=== PATIENT | male | born 1955 | race Caucasian/White ===

== ENCOUNTER 2022-02-15 17:55 | Emergency (ER) | payer MEDICAID, SELFPAY ==
[2022-02-15 18:35] VITALS: BP 148/84; PULSE 70; RESP 18; TEMP 36.7; O2SAT 98; BMI 34.1
[2022-02-15 18:45] VITALS: PULSE 68; O2SAT 98
--- NOTE | 2022-02-15 18:46 | PC.NURSE ---
DR YODER AT BEDSIDE FOR EVALUATION
[2022-02-15 19:05] VITALS: BP 148/84; PULSE 68; RESP 18; TEMP 36.7; O2SAT 98
--- NOTE | 2022-02-21 15:18 | HMH.EDEYEP ---
Discharge Plan Disposition Patient Disposition: Home, Self-Care Condition: Good Prescriptions Prescriptions: New Lotemax 0.5 % ointment 1 applic ophthalmic (eye) QID 14 Days Qty: 3.5 0RF Rx Instructions: start 24 hours after surgery Akten (PF) 3.5 % gel 2 drp ophthalmic (eye) Q10M Qty: 25 0RF Rx Instructions: repeat as needed to maintain desired effect Referrals Follow up/Referrals: Provider,Referral, MD [Primary Care Provider] - See instructions Activity Restrictions/Add. Instructions Additional Instructions/Restrictions: Please follow-up with your auto glass technician due to your ongoing symptoms. Also recommend discussing with your auto glass technician regarding referral to dermatology. Please utilize the eyedrops and ointment as prescribed and return for any worsening symptoms. Clinical Impressions Clinical Impression: Dermatitis Instructions Patient Instructions: Contact Dermatitis Print Language Print Language: Luxembourgish Discharge ED Provider: Afia Velarde Eye Problem HPI General Chief complaint: Eye Problems Stated complaint: possible chemical burn bilateral eyes Time Seen by Provider: 02/15/22 18:00 Mode of Arrival: Ambulatory Source of Information: Patient Limitations: No Limitations Description of Symptoms (Recalled from ER Triage Doc. by RN): PT REPORTS 3 WEEKS OF BILATERAL EYE/EYE LID IRRITATION. GIVEN MULTIPLE MEDICATIONS WITHOUT IMPROVEMENT. NEW CREAM GIVEN TODAY. REPORTS EYE LIDS ARE BURNING SINCE USE History of Present Illness HPI Narrative: Carolyn is a 66 yo male w/ no significant PMH presenting to the ED for 3 weeks of bilateral eye and eye lid irriation. Patient is currently being followed by opthamology and has been on multiple medications without improvement. Patient reports inside his eyes are better, however the skin around his eyes are irritated and inflamed. Patient has not been given any cream to go around eye only intraocular. His auto glass technician reported they believe he may have ezcema and have referred him to specialist. Patient denies any visual changes, blurry vision or diplopia. No pain w/ EOM. NO significant swelling around eye. Patient has isolated erythema surrounding eyes which he reports garcia. Reports no trauma to eyes. No exposure to chemical irritant. No fevers or other infectious symptoms. No contacts. NO other rashes on skin. NO auricular changes. MD chief complaint: eye pain (Pain around eye) Onset (ago): week(s) Onset description: gradual Duration: constant Location: both eyes Eye Symptoms: burning, redness and pain Mechanism: none Severity: moderate If Pain, Quality: burning Associated symptoms: none Treatments Prior to Arrival: OTC eye drops Related Data Previous Rx's Medication Instructions Recorded lidocaine (PF) 3.5 % eye gel 2 drp ophthalmic (eye) Q10M #25 mL 02/15/22 (Akten (PF)) loteprednol etabonate 0.5 % eye 1 applic ophthalmic (eye) QID 14 02/15/22 ointment (Lotemax) days #3.5 grams Allergies Allergy/AdvReac Type Severity Reaction Status Date / Time No Known Allergies Allergy Verified 02/15/22 18:53 [facility] Disclaimer: The information contained in this section may have been updated after the patient was seen, as this information can be updated by other users. Medical History (Updated 02/15/22 @ 18:59 by Afia Velarde MD) Diabetes GERD (gastroesophageal reflux disease) Hyperlipidemia Seasonal allergies Family History Other No significant family history Social History Smoking Status: Current every day smoker alcohol intake: never current occupational status: employed Travel in the last 8 weeks: None ROS Obtained: Yes All systems reviewed & no additional complaints except as documented Physical Exam General General appearance: alert and in no apparent distress Head Head exam: atraumatic and no
== END 2022-02-15 19:05 | disposition home or self-care (01) ==
PROVIDERS: Emergency Provider Student in an Organized Health Care Education/Training Program
DX: H92.03 Otalgia, bilateral (principal)
CPT/HCPCS: 99283

== ENCOUNTER → 2022-04-05 10:46 | Outpatient (CLI) | payer MEDICAID, SELFPAY | PROVIDERS: PCP Internal Medicine Adolescent Medicine; Visit Provider Nurse Practitioner Family | DX: E83.10 Disorder of iron metabolism, unspecified (principal); G25.81 Restless legs syndrome | CPT/HCPCS: 36415; 82728 ==

== ENCOUNTER 2022-04-27 06:18 | Day surgery (SDC) | payer MEDICAID, SELFPAY ==
[2022-04-22 13:20] VITALS: BMI 33.4
[2022-04-27] VITALS (8 sets, daily range): BP systolic 126–148; BP diastolic 65–111; PULSE 51–62; RESP 17–18; TEMP 36.5–36.6; O2SAT 94–99
[2022-04-27 07:19] LABS: POC Glucose,Bedside 102 (70-110)
== END 2022-04-27 08:36 | disposition home or self-care (01) ==
PROVIDERS: PCP Internal Medicine Adolescent Medicine; Visit Provider Ophthalmology
PROC: (CPT 66984; principal; 2022-04-27 08:00)
DX: E11.36 Type 2 diabetes mellitus with diabetic cataract (principal); F17.210 Nicotine dependence, cigarettes, uncomplicated; Z79.899 Other long term (current) drug therapy
CPT/HCPCS: 66984; 82962; V2632

== ENCOUNTER 2022-05-11 09:06 | Day surgery (SDC) | payer MEDICAID, SELFPAY ==
[2022-05-10 12:47] VITALS: BMI 34.0
[2022-05-11] VITALS (8 sets, daily range): BP systolic 143–183; BP diastolic 70–103; PULSE 59–76; RESP 16–18; TEMP 36.4–36.9; O2SAT 96–99
[2022-05-11 10:31] LABS: POC Glucose,Bedside 120 (70-110)
== END 2022-05-11 11:10 | disposition home or self-care (01) ==
PROVIDERS: PCP Internal Medicine Adolescent Medicine; Visit Provider Ophthalmology
PROC: (CPT 66984; principal; 2022-05-11 11:30)
DX: E11.36 Type 2 diabetes mellitus with diabetic cataract (principal); H25.9 Unspecified age-related cataract; F17.210 Nicotine dependence, cigarettes, uncomplicated; Z79.899 Other long term (current) drug therapy
CPT/HCPCS: 66984; 82962; V2632

== ENCOUNTER → 2022-05-18 07:09 | Outpatient (CLI) | payer MEDICAID, SELFPAY ==
--- NOTE | 2022-05-18 07:15 | CT_ITS ---
FINAL REPORT TECHNIQUE: Axial images were obtained from the lung apex to the mid abdomen by computed tomography. This study was performed with techniques to keep radiation doses as low as reasonably achievable (ALARA). Individualized dose reduction techniques using automated exposure control or adjustment of mA and/or kV according to the patient's size were employed. CLINICAL HISTORY: H/O NICOTINE DEPENDENCE 1 ppd x25 years current smoker FINDINGS: CHEST CT LOW DOSE CTDI vol (mGy): 2.90 DLP (mGy-cm): 96.38 There is no axillary adenopathy. There are multiple calcified mediastinal and left hilar nodes. The heart is normal in size. There is no pericardial or pleural effusion. Lung window images demonstrate no suspicious infiltrate or nodule. There is a calcified granuloma in the left lower lobe. There are changes of mild emphysema and scarring. Limited images of the upper abdomen are unremarkable. IMPRESSION: Lung RADS category 1. Recommend 12 month follow-up low-dose chest CT. Reviewed, Interpreted and Dictated by Rush Davis III, MD Transcribed by Disha Alicia Authenticated and [facility]
== END ==
PROVIDERS: PCP Internal Medicine Adolescent Medicine; Visit Provider Internal Medicine Adolescent Medicine
DX: Z87.891 Personal history of nicotine dependence (principal); Z12.2 Encounter for screening for malignant neoplasm of respiratory organs
CPT/HCPCS: 71271

== ENCOUNTER → 2022-07-16 10:54 | Outpatient (CLI) | payer MEDICARE, MEDICAID, SELFPAY ==
--- NOTE | 2022-07-16 11:04 | XR_ITS ---
FINAL REPORT CLINICAL HISTORY: RIGHT HAND PAIN. INJURY 15 YEARS AGO. NO PRIOR COMPARISON: None FINDINGS: RIGHT HAND Three views demonstrate no acute fracture or dislocation. There is mild joint space narrowing of the DIP and PIP joints and of the 2nd and 3rd MCP joints consistent with mild osteoarthritis. No bony erosions or periosteal reaction. The soft tissues are unremarkable. IMPRESSION: Mild osteoarthritis. Reviewed, Interpreted and Dictated by Uzair Jenkins MD Transcribed by Mia Polanco Authenticated and [facility]
[2022-07-16 12:12] LABS: Basophils % 0.3 % (0.1-2.0); Eosinophils # 0.1 K/mm3 (0.0-0.4); Eosinophils % 1.9 % (0.1-12.0); Hematocrit 43.5 % (42.0-52.0); Hemoglobin 14.5 g/dL (14.1-18.0); Lymphocytes # 1.6 K/mm3 (0.7-4.5); Lymphocytes % 21.1 % (10-50); Mean Corpuscular HGB Conc 33.3 g/dL (31.8-35.4); Mean Corpuscular Hemoglobin 30.2 pg (27.0-31.2); Mean Corpuscular Volume 90.6 fl (80-94); Mean Platelet Volume 7.4 fl (7.4-10.4); Monocytes # 0.7 K/mm3 (0.1-1.0); Monocytes % 8.8 % (1.7-9.3); Neutrophils # 5.2 K/mm3 (1.8-7.8); Neutrophils % 67.9 % (37.0-80.0); Platelet Count 279 K/mm3 (142-424); Red Cell Distribution Width 13.5 % (11.5-17.5); White Blood Count 7.7 K/mm3 (4.8-10.8)
[2022-07-16 12:40] LABS: Alanine Aminotransferase 37 U/L (12-78); Albumin Level 4.1 g/dl (3.5-5.0); Albumin/Globulin Ratio 1.4 (1.1-1.8); Alkaline Phosphatase 61 U/L (38-126); Anion Gap 11.7 mEq/L (5-15); Aspartate Amino Transferase 33 U/L (17-59); Bilirubin,Total 0.6 mg/dl (0.2-1.3); Blood Urea Nitrogen 19 mg/dl (9-20); Calcium 8.6 mg/dl (8.4-10.2); Carbon Dioxide 30 mmol/L (22.0-30.0); Chloride 102 mmol/L (98-107); Estimated Glomerular Filt Rate 51 ml/min (>60); GFR (African American) 62 ML/MIN (>60); Globulin 2.9 g/dL (1.3-3.2); Glucose 133 mg/dl (74-100); Potassium 4.7 mmoL/L (3.5-5.1); Sodium 139 mmol/L (136-145)
== END ==
PROVIDERS: PCP Internal Medicine Adolescent Medicine; Visit Provider Internal Medicine Adolescent Medicine
DX: M79.641 Pain in right hand (principal); B80 Enterobiasis
CPT/HCPCS: 36415; 73130; 80053; 85025

== ENCOUNTER 2022-11-08 14:51 | Emergency (ER) | payer MEDICARE, MEDICAID, SELFPAY ==
[2022-11-08] VITALS (9 sets, daily range): BP systolic 107–162; BP diastolic 55–83; PULSE 56–107; RESP 16–18; TEMP 36.8; O2SAT 95–99; BMI 34.0
--- NOTE | 2022-11-08 15:13 | XR_ITS ---
PROCEDURE INFORMATION: Exam: XR Chest Exam date and time: 11/08/2022 4:44 PM Age: 67 years old Clinical indication: Pain; Radiating; Additional info: Cp, tearing, to back TECHNIQUE: Imaging protocol: Radiologic exam of the chest. Views: 1 view. COMPARISON: CT LUNG SCREENING 05/18/2022 7:22 AM FINDINGS: Lungs: Left lower lobe granuloma is re-identified. No evidence of pneumonia or interstitial edema. Pleural spaces: Unremarkable. No pleural effusion. No pneumothorax. Heart/Mediastinum: Unremarkable. No cardiomegaly. Bones/joints: Unremarkable. IMPRESSION: Left lower lobe granuloma is re-identified. No evidence of pneumonia or interstitial edema.
--- NOTE | 2022-11-08 15:13 | CT_ITS ---
PROCEDURE INFORMATION: Exam: CTA Chest With Contrast Exam date and time: 11/08/2022 4:55 PM Age: 67 years old Clinical indication: Pain; Radiating; Additional info: Tearing pain between shoulder blades TECHNIQUE: Imaging protocol: Computed tomographic angiography of the chest with contrast. Exam focused on the arteries. 3D rendering (Not supervised by radiologist): MIP and/or 3D reconstructed images were created by the technologist. Radiation optimization: All CT scans at this facility use at least one of these dose optimization techniques: automated exposure control; mA and/or kV adjustment per patient size (includes targeted exams where dose is matched to clinical indication); or iterative reconstruction. Contrast material: ISOVUE; Contrast volume: 100 ml; Contrast route: INTRAVENOUS (IV); REPORTING DATA: Count of CT and Cardiac NM exams in prior 12 months: This patient has received [address] and 0 known cardiac nuclear medicine studies in the 12 months prior to the current study. COMPARISON: CT LUNG SCREENING 05/18/2022 7:22 AM FINDINGS: Pulmonary arteries: No evidence of filling defects to suggest pulmonary emboli. Aorta: Aorta is nonaneurysmal. Lungs: Left lower lobe pulmonary granulomas re-identified.No evidence of airspace opacity or interlobular septal thickening. Pleural spaces: No pneumothorax. No pleural effusion. Heart: No cardiomegaly or pericardial effusion. Heart RV/LV ratio: The RV/LV ratio is less than 1. Lymph nodes: Prominent right hilar nodes. Calcified mediastinal and hilar lymph nodes suggest prior granulomatous exposure. Bones/joints: No acute osseous abnormality. Soft tissues: Unremarkable. IMPRESSION: 1. No pulmonary embolus. 2. No airspace or interstitial lung disease
--- NOTE | 2022-11-08 15:34 | HMH.EDGENADL ---
Discharge Plan Disposition Patient Disposition: Home, Self-Care Chief Complaint: PAIN Prescriptions Prescriptions: No Action Januvia 100 mg tablet 100 mg PO DAILY ezetimibe 10 mg tablet 10 mg PO DAILY pantoprazole 40 mg tablet,delayed release (DR/EC) 40 mg PO HS Patient Comments: TAKE 1 TABLET BY MOUTH ONCE DAILY etodolac 400 mg tablet 400 mg PO DAILY Patient Comments: TAKE 1 TABLET BY MOUTH TWICE DAILY loratadine [Claritin] 10 mg tablet 10 mg PO DAILY dutasteride 0.5 mg capsule 0.5 mg PO DAILY Slow Fe 47.5 mg iron Tablet Extended Release 143 mg PO DAILY Referrals Follow up/Referrals: Melvin Israel MD [Primary Care Provider] - See instructions Activity Restrictions/Add. Instructions Additional Instructions/Restrictions: Call your family doctor to establish care for this visit to the emergency department and schedule follow-up within 48 hours to ensure improvement. If you have any worsening of your condition or any other concerning signs or symptoms, return to the emergency department or your primary care doctor for further evaluation. Take Tylenol 1000 mg every 6 hours (4 times daily) and ibuprofen 400 mg every 6 hours (4 times daily) as needed with food and water to prevent GI upset and kidney damage. Clinical Impressions Clinical Impression: Back pain Qualifiers: Back pain location: thoracic back pain Chronicity: acute Back pain laterality: bilateral Qualified Code(s): M54.6 - Pain in thoracic spine Discharge ED Provider: Ki Ramirez General Adult HPI General Chief complaint: PAIN Stated complaint: pain in back of neck and radiates down left side Time Seen by Provider: 11/08/22 15:00 Mode of Arrival: Ambulatory Source of Information: Patient Limitations: No Limitations Description of Symptoms (Recalled from ER Triage Doc. by RN): Presents to ED with c/o 11 pain that radiates from his neck into his left arm x a few weeks when he was lifting heavy items. Patient reports this has been going on for approx. 3 months but pain has increased with some SOA and weakness. Patient further reports taking 400mg of an anti-inflammatory medication twice a day but unsure of the name with little to no relief. History of Present Illness HPI narrative: This is a 67-year-old male with history of hypertension, hyperlipidemia, COPD still currently smoking, HAI, chronic back pain necessitating epidural injection presenting with back pain. Patient states that for 3 months he has had a shooting, stabbing back pain that starts in the middle of his spine between shoulder blades and radiates down his left arm. Moderate to severe in intensity, nothing particular makes it better. Intermittently has separate, but similar pain radiating from his left buttock down to his left sole of his foot. Denies shortness of breath, nausea, abdominal pain, dysuria hematuria, weakness, bowel or bladder dysfunction, fevers, or any other concerns. Related Data Home Medications Medication Instructions Recorded Confirmed dutasteride 0.5 mg capsule 0.5 mg PO DAILY prostate 04/05/22 09/28/22 etodolac 400 mg tablet 400 mg PO DAILY * 04/05/22 09/28/22 ezetimibe 10 mg tablet 10 mg PO DAILY * 04/05/22 09/28/22 loratadine 10 mg tablet (Claritin) 10 mg PO DAILY allergies 04/05/22 09/28/22 pantoprazole 40 mg tablet,delayed 40 mg PO HS acid reflux 04/05/22 09/28/22 release sitagliptin phosphate 100 mg 100 mg PO DAILY Diabetes 04/05/22 09/28/22 tablet (Januvia) ferrous sulfate 143 mg PO DAILY Supplement 04/22/22 09/28/22 Allergies Allergy/AdvReac Type Severity Reaction Status Date / Time metformin Allergy Verified 09/28/22 14:13 [id number] Reductase Allergy Verified 09/28/22 14:13 [facility] Disclaimer: The information contained in this section may have been updated after the patient was seen, as this information can be updated by other users. Medical History (Revie
--- NOTE | 2022-11-08 15:41 | ECG_ITS ---
APPROVED REPORT Exam: Resting ECG HR:82 bpm ECG Measurements Heart Rate 82 AXES MN 153 P 69 QRSd 100 QRS -19 QT 350 T 42 QTc 389 Conclusion SINUS RHYTHM WITH MARKED SINUS ARRHYTHMIA INCOMPLETE RIGHT BUNDLE BRANCH BLOCK Late R wave progression ABNORMAL ECG UNCONFIRMED REPORT Electronically signed by : Melvin Israel MD 11/09/2022 17:19:44
--- NOTE | 2022-11-08 15:50 | PC.NURSE ---
Hipolito at bs when rounding on pt
[2022-11-08 16:20] LABS: Basophils % 0.4 % (0.1-2.0); Eosinophils # 0.2 K/mm3 (0.0-0.4); Hematocrit 48.5 % (42.0-52.0); Hemoglobin 16.2 g/dL (14.1-18.0); Lymphocytes # 2.1 K/mm3 (0.7-4.5); Lymphocytes % 21.1 % (10-50); Mean Corpuscular HGB Conc 33.4 g/dL (31.8-35.4); Mean Corpuscular Hemoglobin 30.2 pg (27.0-31.2); Mean Corpuscular Volume 90.5 fl (80-94); Mean Platelet Volume 8.3 fl (7.4-10.4); Monocytes # 0.7 K/mm3 (0.1-1.0); Monocytes % 7.4 % (1.7-9.3); Neutrophils # 6.8 K/mm3 (1.8-7.8); Neutrophils % 69.2 % (37.0-80.0); Platelet Count 347 K/mm3 (142-424); Red Blood Count 5.36 M/mm3 (4.60-6.20); Red Cell Distribution Width 13.6 % (11.5-17.5); White Blood Count 9.8 K/mm3 (4.8-10.8)
[2022-11-08 16:27] LABS: Activated Partial Thrombo Time 28.5 seconds (22.8-30.6)
[2022-11-08 16:28] LABS: Alanine Aminotransferase 42 U/L (12-78); Albumin Level 4.5 g/dl (3.5-5.0); Albumin/Globulin Ratio 1.2 (1.1-1.8); Alkaline Phosphatase 59 U/L (38-126); Anion Gap 15.1 mEq/L (5-15); Aspartate Amino Transferase 36 U/L (17-59); Bilirubin,Total 0.6 mg/dl (0.2-1.3); Blood Urea Nitrogen 15 mg/dl (9-20); Calcium 9.4 mg/dl (8.4-10.2); Carbon Dioxide 27 mmol/L (22.0-30.0); Chloride 101 mmol/L (98-107); Creatinine Clearance Estimated 86 mL/min (50-200); Estimated Glomerular Filt Rate 55 ml/min (>60); GFR (African American) 67 ML/MIN (>60); Globulin 3.9 g/dL (1.3-3.2); Glucose 171 mg/dl (74-100); Lipase 121 U/L (23-300); Potassium 4.1 mmoL/L (3.5-5.1); Sodium 139 mmol/L (136-145); Total Protein,Serum 8.4 g/dl (6.3-8.2)
--- NOTE | 2022-11-08 16:35 | PC.NURSE ---
UA sent to lab
[2022-11-08 16:41] LABS: Troponin I < 0.01 ng/ml (0.00-0.034)
--- NOTE | 2022-11-08 16:49 | PC.NURSE ---
pt in CT
--- NOTE | 2022-11-08 18:10 | PC.NURSE ---
Md bunch for PO. Ordered patient a regular diet tray.
--- NOTE | 2022-11-08 18:15 | PC.NURSE ---
Dietary @ BS with tray
== END 2022-11-08 18:38 | disposition home or self-care (01) ==
PROVIDERS: Emergency Provider Emergency Medicine; PCP Internal Medicine Adolescent Medicine
DX: M54.6 Pain in thoracic spine (principal); M54.2 Cervicalgia; M79.602 Pain in left arm; I10 Essential (primary) hypertension; E78.5 Hyperlipidemia, unspecified; J44.9 Chronic obstructive pulmonary disease, unspecified; G47.33 Obstructive sleep apnea (adult) (pediatric); E11.9 Type 2 diabetes mellitus without complications; K21.9 Gastro-esophageal reflux disease without esophagitis; F17.210 Nicotine dependence, cigarettes, uncomplicated
CPT/HCPCS: 71045; 71275; 80053; 83690; 84484; 85025; 85730; 93005; 96361; 96374; 99285; Q9967

== ENCOUNTER 2023-07-25 10:19 | Emergency (ER) | payer MEDICARE, MEDICAID, SELFPAY ==
[2023-07-25 10:20] VITALS: BP 151/114; PULSE 71; RESP 16; TEMP 36.6; O2SAT 97; BMI 43.5
--- NOTE | 2023-07-25 10:35 | PC.NURSE ---
Dr. George at BS for pt eval
--- NOTE | 2023-07-25 10:40 | XR_ITS ---
FINAL REPORT CLINICAL HISTORY: Right knee pain, atraumatic COMPARISON: None FINDINGS: A single nonstandard view of the right knee was obtained. There is no evidence of fracture or dislocation. The joint spaces are preserved. No localized soft tissue abnormality is identified. IMPRESSION: No acute abnormality identified. Reviewed, Interpreted and Dictated by Rush Davis III, MD Transcribed by Mia Polanco Authenticated and [facility]
--- NOTE | 2023-07-25 10:40 | XR_ITS ---
FINAL REPORT CLINICAL HISTORY: hip pain, atraumatic COMPARISON: None FINDINGS: A nonstandard view of the right femur was obtained. There is no acute fracture or dislocation. The joint spaces are well preserved. There is no acute soft tissue abnormality. IMPRESSION: No acute abnormality identified. Reviewed, Interpreted and Dictated by Rush Davis III, MD Transcribed by Mia Polanco Authenticated and [facility]
--- NOTE | 2023-07-25 10:40 | XR_ITS ---
FINAL REPORT CLINICAL HISTORY: hip pain, atraumatic COMPARISON: None FINDINGS: RIGHT HIP Two views of the right hip demonstrate no acute fracture or dislocation. There are mild degenerative changes of both hips and the lower lumbar spine. The visualized bony structures are well aligned. No soft tissue abnormality is seen. IMPRESSION: Mild degenerative changes without acute bony abnormality. Reviewed, Interpreted and Dictated by Rush Davis III, MD Transcribed by Mia Polanco Authenticated and [facility]
[2023-07-25] MEDS: diazePAM 5MG TABLET 5 MG PO (10:48)
[2023-07-25] MEDS: DEXAMETHASONE 4MG TABLET 10 MG PO (10:48)
[2023-07-25] MEDS: KETOROLAC 30MG/ML VIAL 30 MG IM (10:48)
[2023-07-25] MEDS: LIDOCAINE 5% TRANSDERMAL PATCH 1 EACH TP (10:48)
[2023-07-25] MEDS: ACETAMINOPHEN 500MG TAB 1000 MG PO (10:48)
--- NOTE | 2023-07-25 10:58 | HMH.EDGENADL ---
Discharge Plan Disposition Patient Disposition: Home, Self-Care Condition: Fair Prescriptions Prescriptions: New ketorolac 10 mg tablet 10 mg PO Q8H PRN (Reason: pain) 1 Days Qty: 14 0RF prednisone 20 mg tablet 40 mg PO DAILY 5 Days Qty: 10 0RF methocarbamol 750 mg tablet 750 mg PO Q8H PRN (Reason: pain) Qty: 20 0RF lidocaine [Lidoderm] 5 % adhesive patch,medicated 1 patch topical DAILY Qty: 15 0RF Rx Instructions: leave on most painful area for up to 12 hrs No Action Januvia 100 mg tablet 100 mg PO DAILY ezetimibe 10 mg tablet 10 mg PO DAILY pantoprazole 40 mg tablet,delayed release (DR/EC) 40 mg PO HS Patient Comments: TAKE 1 TABLET BY MOUTH ONCE DAILY etodolac 400 mg tablet 400 mg PO DAILY Patient Comments: TAKE 1 TABLET BY MOUTH TWICE DAILY loratadine [Claritin] 10 mg tablet 10 mg PO DAILY dutasteride 0.5 mg capsule 0.5 mg PO DAILY Slow Fe 47.5 mg iron Tablet Extended Release 143 mg PO DAILY Referrals Follow up/Referrals: Provider,Referral, MD [Primary Care Provider] - See instructions Activity Restrictions/Add. Instructions Additional Instructions/Restrictions: You were evaluated in the emergency department today. Please brain picker your prescriptions at the pharmacy and take them as prescribed. You may also take Tylenol every 4 hours as needed for pain. Return to the emergency department for new or worsening symptoms. Follow-up with your primary care provider over the next week for reassessment. Clinical Impressions Clinical Impression: Right sided sciatica Stand Alone Forms Stand Alone Forms: Work/School Release Instructions Patient Instructions: DI for Sciatica, DI for Acute Pain -- Adult Discharge ED Provider: Dilma George General Adult HPI General Chief complaint: Extremity Problem,Nontraumatic Stated complaint: R HIP PAIN Time Seen by Provider: 07/25/23 10:21 Mode of Arrival: EMS Source of Information: Patient Limitations: No Limitations Description of Symptoms (Recalled from ER Triage Doc. by RN): Patient reports right sided hip pain since . States it has continued to get worse and today he was unable to walk. History of Present Illness HPI narrative: This patient is a 68-year-old male with a history of obesity, restless leg syndrome, tobacco use, marijuana use, hypertension, type 2 diabetes, and GERD presenting to the emergency department for evaluation with concern for right buttock pain radiating down the posterior aspect of his right leg to his toes. He denies any traumatic injuries or falls. He states that he thought maybe his hip is out of place, but EMS told him that they think that he may have sciatica. He states that this is been going on since and has progressively worsened to the point where he was unable to walk today, prompting him to call EMS. He notes that he still has intact range of motion, but his leg is very painful. He denies any low back pain, fevers, chills, unintentional weight loss, numbness, tingling, saddle anesthesia, incontinence, urinary retention, or other concerns. EMS reports the patient was stable en route. Related Data Home Medications Medication Instructions Recorded Confirmed dutasteride 0.5 mg capsule 0.5 mg PO DAILY prostate 04/05/22 09/28/22 etodolac 400 mg tablet 400 mg PO DAILY * 04/05/22 09/28/22 ezetimibe 10 mg tablet 10 mg PO DAILY * 04/05/22 09/28/22 loratadine 10 mg tablet (Claritin) 10 mg PO DAILY allergies 04/05/22 09/28/22 pantoprazole 40 mg tablet,delayed 40 mg PO HS acid reflux 04/05/22 09/28/22 release sitagliptin phosphate 100 mg 100 mg PO DAILY Diabetes 04/05/22 09/28/22 tablet (Januvia) ferrous sulfate 143 mg PO DAILY Supplement 04/22/22 09/28/22 Previous Rx's Medication Instructions Recorded ketorolac 10 mg tablet 10 mg PO Q8H PRN pain 1 day #14 07/25/23 tabs lidocaine 5 % topical patch 1 patch topical DAILY #15 ea 07/25/23 (Lidoderm) methocarbamol 750 mg tablet 750 mg PO Q8H PRN pain #20 tabs 07/25/23 prednisone 20 mg tablet 40 mg (2 x 20 mg) PO DAILY 5 days 07/25/23 #10 tabs Allergies Allergy/AdvReac Type Severity Reaction Status Date / Time metformin Allergy Verified 09/28/22 14:13 [id number] Reductase Allergy Verified 09/28/22 14:13 [facility] Disclaimer: The information contained in this section may have been updated after the patient was seen, as this information can be updated by other users. Medical History Kidney stone Sleep apnea History of cataract History of anemia Carpal tunnel syndrome of right wrist COPD (chronic obstructive pulmonary disease) Skin cancer Hyperlipidemia Diabetes GERD (gastroesophageal reflux disease) Seasonal allergies Surgical History H/O shoulder surgery Family History Other Eye problems Family history of cancer Kidney problem Social History Smoking Status: Current every day smoker tobacco type: cigarettes packs per day: 1 alcohol intake: never substance use type: marijuana current occupational status: retired and disabled Travel in the last 8 weeks: None household members: significant other housing: house marital status: life partner caffeine: Yes ROS Obtained: Yes All systems reviewed & no additional complaints except as documented Physical Exam General General appearance: alert, in no apparent distress and obese Comment: Uncomfortable appearing Head Head exam: atraumatic and normocephalic Eye Eye exam: Present normal appearance, PERRL and EOMI ENT ENT exam: Present normal exam, normal oropharynx, mucous membranes moist and normal external ear exam Neck Neck exam: Present normal inspection, full ROM and trachea midline; Absent tenderness Chest Chest inspection: Present normal inspection and symmetric chest wall rise; Absent tenderness Respiratory Respiratory exam: Present normal lung sounds bilaterally; Absent respiratory distress, wheezes, stridor or accessory muscle use Cardiovascular Cardiovascular exam: Present regular rate and normal rhythm Abdominal Exam Abdominal exam: Present soft; Absent distention, tenderness or guarding Extremities Exam Extremities exam: Present normal inspection, full ROM and normal capillary refill; Absent tenderness or edema Back Exam Back exam: Present normal inspection and full ROM; Absent tenderness Neurological Exam Neurological exam: Present alert, oriented X3, CN II-XII intact and normal gait; Absent motor sensory deficit Psychiatric Psychiatric exam: Present normal affect and normal mood Skin Skin exam: Present warm and dry Medical Decision Making Medical Records Medical records reviewed: Yes I reviewed the patient's medical records. Chi Inquiry Pt receiving controlled substance: No Vital Signs: 07/25/23 10:20 07/25/23 11:31 07/25/23 12:00 Temperature 97.9 F Temperature Source Oral Pulse Rate 63 92 H Pulse Rate [Radial] 71 Respiratory Rate 16 Blood Pressure 96/65 L Blood Pressure [Right Arm] 151/114 H Blood Pressure Mean 75 Blood Pressure Mean [Right Arm] 126 Blood Pressure Source Blood Pressure Source [Right Arm] Automatic Cuff Blood Pressure Position Blood Pressure Position [Right Arm] Sitting 02 Sat by Pulse Oximetry 97 92 L 93 L Oxygen Delivery Method Room Air 07/25/23 12:53 Temperature 98.8 F Temperature Source Oral Pulse Rate 84 Pulse Rate [Radial] Respiratory Rate 20 Blood Pressure 150/80 H Blood Pressure [Right Arm] Blood Pressure Mean Blood Pressure Mean [Right Arm] Blood Pressure Source Automatic Cuff Blood Pressure Source [Right Arm] Blood Pressure Position Sitting Blood Pressure Position [Right Arm] 02 Sat by Pulse Oximetry Oxygen Delivery Method Room Air Lab Data Lab results reviewed: Yes I reviewed the patient's lab results. Orders (Tests/Meds): ED MEDICATIONS Discontinued Medications Generic Name Dose Route Start Last Admin Trade Name Freq PRN Reason Stop Dose Admin Acetaminophen 1,000 mg 07/25/23 10:40 07/25/23 10:48 Acetaminophen 500mg Tab PO 07/25/23 10:41 1,000 mg ONCE ONE Administration Dexamethasone 10 mg 07/25/23 10:40 07/25/23 10:48 Dexamethasone 4mg Tablet PO 07/25/23 10:41 10 mg ONCE ONE Administration Diazepam 5 mg 07/25/23 10:40 07/25/23 10:48 Diazepam 5mg Tablet PO 07/25/23 10:41 5 mg ONCE ONE Administration Ketorolac Tromethamine 30 mg 07/25/23 10:40 07/25/23 10:48 Ketorolac 30mg/Ml Vial IM 07/25/23 10:41 30 mg ONCE ONE Administration Lidocaine 1 each 07/25/23 10:40 07/25/23 10:48 Lidocaine 5% Transdermal Patch TP 07/25/23 10:41 1 each ONCE ONE Administration Oxycodone HCl 5 mg 07/25/23 12:39 07/25/23 12:47 Oxycodone 5mg Immediate Release Tablet PO 07/25/23 12:40 5 mg ONCE ONE Administration ORDERS Category Date Time Status XR femur RT 1V Stat Exams 07/25/23 10:40 Completed XR hip RT 2-3V w/pelvis Stat Exams 07/25/23 10:40 Completed XR knee RT 2V Stat Exams 07/25/23 10:40 Completed Medical Decision Narrative: In summary, this patient is a 68-year-old male presenting to the Emergency Department for evaluation of right buttock pain radiating down the right leg. Differential diagnoses considered include but are not limited to sciatica, hip fracture, hip dislocation, musculoskeletal strain. Ruling out the most morbid conditions drove assessment. It should be noted patient's history includes obesity which is not at goal therapy. This complicates all aspects of care by increasing patient's risk for morbidity. I reviewed patient's past medical records and noted previous evaluations for atraumatic back pain. On exam, the patient is well-appearing. He has no obvious traumatic injury on exam and is neurovascularly intact in his lower extremities. No significant lower extremity swelling. Workup included x-rays of the right hip, pelvis, femur, and knee to evaluate for bony pathology, though I feel it is unlikely. I feel the patient was likely has sciatica. I do not feel that other labs or imaging are indicated at this time based on reassuring history and exam. Patient was given oral Valium, oral Tylenol, oral dexamethasone, IM Toradol, and a topical Lidoderm patch for symptomatic improvement of likely sciatica. I independently interpreted XR prior to the radiologist read and noted no acute bony abnormality. Please see their read for final interpretation. On reassessment, patient had some improvement after administration of interventions above. He continued to have pain that is keeping him from being able to ambulate, so he was given a one-time oral oxycodone. After this, his pain improved and he was able to ambulate to the restroom. Given this, I feel that he is appropriate for discharge with supportive management of sciatica. He was given prescriptions of Robaxin, Toradol, and prednisone. He was given instructions for close follow-up and strict return precautions. He was discharged after all questions were answered. Critical Care Critical Care Time Critical Care Time: No
--- NOTE | 2023-07-25 11:06 | PC.NURSE ---
KRISTI called to notify us that pt is having difficulties staying still or being positioned for xrays. Dr. George made aware.
[2023-07-25 11:31] VITALS: BP 96/65; PULSE 63; O2SAT 92
[2023-07-25 12:00] VITALS: PULSE 92; O2SAT 93
[2023-07-25] MEDS: OXYCODONE 5MG IMMEDIATE RELEASE TABLET 5 MG PO (12:47)
--- NOTE | 2023-07-25 12:47 | PC.NURSE ---
PT AMBULATED UP TO BR
[2023-07-25 12:53] VITALS: BP 150/80; PULSE 84; RESP 20; TEMP 37.1; O2SAT 99
== END 2023-07-25 13:01 | disposition home or self-care (01) ==
PROVIDERS: Emergency Provider Emergency Medicine
DX: M54.31 Sciatica, right side (principal)
CPT/HCPCS: 73502; 73551; 73560; 96372; 99284

== ENCOUNTER 2023-08-31 13:06 | Outpatient (RCR) | payer MEDICARE, MEDICAID, SELFPAY ==
--- NOTE | 2023-08-31 15:49 | HMH.PTOPEV ---
PT Outpatient Evaluation Rehab PT Outpatient Evaluation Start: 08/31/23 14:33 Freq: Status: Active Protocol: Document 08/31/23 14:33 TESS (Rec: 08/31/23 15:49 TESS [id number]) E-signed By Bam Valentin, PT Outpatient Therapy Subjective History Subjective History Patient is a 68 year old male presenting to outpatient PT with reports of acute on chronic LBP with RLE radicular symptoms. Symptoms of insidious onset starting approx 10 years ago that have progressively gotten worse over the past 2 weeks. Special tests indicate R anterior rotation of the innominant. No recent imaging to report. Comorbidities include hx of diabetes, melanoma and R RCR. New diagnosis of cancer in past 12 No months? Chief Complaint Pain,Stiff,Paresthesia Symptom Type Sharp,Numbness,Tingling Symptoms Relieved By Rest/Positioning,Heat, Prescription Meds Symptoms Aggravated By Standing,Bending/Stooping, Physical Activity,Lifting Prior Functional Limitations Lifting,Standing,Walking, Bending/Stooping Current Functional Limitations Lifting,Housework,Sleeping, Standing,Walking,Bending/ Stooping Symptom Description Constant but Variable Level of pain today (0-10) 4 Pain scale - at its best (0-10) 4 Pain scale - at its worst (0-10) 8 Lumbopelvic Eval Posture Thoracic Spine Posture Standing Position Increased Kyphosis Lumbar Spine Posture Standing Position Decreased Lordosis Assistive device Assistive Devices None / NA Palapation tenderness right Lumbar/Sacral Palpation Findings Tenderness Lumbar/Sacral Palpation Overall Comment PSIS/upper gluteal mm 3/4 Accessory Movement L5 right S1 right Range of Motion Lumbar Spine Active Flexion Range of 64 Motion (degrees) Lumbar Spine Active Extension Range of 18 Motion (degrees) Left Lumbar Spine Lateral Flexion Active 19 Range of Motion (degrees) Right Lumbar Spine Lateral Flexion 22 Active Range of Motion (degrees) Lumbar Spine ROM Limitations Soft Tissue Tightness,Bony Restriction Manual Muscle Test Right Knee Extension Strength Grade 5 Normal Knee Flexion Strength Grade 5 Normal Hip Flexion Strength Grade 4- Good- Extensor Hallucis Longus Strength Grade 4 Good Ankle Dorsiflexion Strength Grade 4 Good Gastronemius/Soleus Strength Grade 4 Good Altered Sensation LE Dermatome Level L5,S1 Comment NT Special Tests Hip Madhu (MARIAM) Test Positive Left,Positive Right Hip Henna Test Positive Left,Positive Right Hip Piriformis Test Positive Left,Positive Right Sciatic Nerve Tension Test Negative Left,Positive Right Yovani Test Positive Sacroiliac Joint Distraction Test Negative Left,Positive Right Kyra's Sign Test Negative Left,Positive Right Lumbar Long [place] Distraction Test/Manual Positive Traction Oswestry Index Section 1 Pain Intensity The pain comes and goes and is severe Section 2 Personal Care (Washing,Dresing) my way of washing or dressing even though it causes some pain Section 3 Lifting lifting heavy weights off the floor, but I can manage light to medium Section 4 Walking I have some pain when walking but it does not increase with distance Section 5 Sitting I can sit in my favorite chair for as long as I like Section 6 Standing I cannot stand more than 1/2 hour without increasing pain Section 7 Sleeping Because of my pain, my normal night's sleep is less than 4 hours Section 8 Social Life Pain has restricted my social life and I do not go out often Section 9 Traveling I get extra pain while traveling which compels me to seek alternate fo Section 10 Changing Degreee of Pain My pain is neither getting better or worse Score and Risk Level Oswestry Sc 26 Oswestry Risk Level Severe Disability Outpatient Therapy Assessment Impairments Problems/Impairmments Palpation Tenderness,Impaired Range of Motion,Impaired Strength,Impaired Walking, Impaired Standing,Impaired Lifting,Impaired Household Care,Impaired Bending, Subjective C/O Pain Prognosis Rehab Potential Good Clinical Impression Consistent with Diagnosis Yes Short Term Goals Number of Weeks 2 Decrease Subjective C/O Pain Yes: 5/10 at worst Patient to be Ind w/ HEP Yes Usp Goals Number of Weeks 4-6 Decreased Palpation Tenderness Yes: 1/4 Increase Range of Motion Yes: WNL Increase Strength Yes: BLE 5/5 Increase Ability to Walk Yes: 1 hr without difficulty ( 30 min currently) Increase Ability to Stand Yes: Improve Ability For Household Care Yes Improve Ability to Bend Yes Return to Recreational Activities Yes Improve Oswestry Score Yes: <20 Decrease Subjective C/O Pain Yes: 2/10 at worst Outpatient Therapy Plan of Care Treatment Plan May Include Therapeutic Exercise Including Home Yes Exercise Program Manual Therapy Techniques Yes Neuromuscular Re-education Yes Therapeutic Activities to Return to Yes Previous Functional/Work Level Gait Training Yes ADL/Self Care Education Yes Mechanical Traction Yes Dry Needling Yes Thermal Modalities Yes Electrical Stimulation Yes Ultrasound/Phonophoresis Yes Iontophoresis Yes Orthotics/Bracing/Splinting Yes Eval/Re-Eval Yes Frequency Times per week 2 Duration Number of Weeks 4-6 Addendums This patient is a candidate for social No or vocational rehab? Patient/Guardian verbally acknowledges Yes understanding of treatment program and consents to further treatment? Patient/Guardian verbally acknowledges Yes understanding of diagnosis, prognosis and goals for treatment? Eval Complexity PT Charges 92906 - Moderate Complexity Shoulder/Elbow Eval Shoulder Objective Measurements Elbow Objective Measurements PHYSICIAN CERTIFICATION: I certify the specified therapy services for Thaddeus Leon are required, authorized, and reviewed every 30 days.
== END 2023-08-31 14:20 | disposition home or self-care (01) ==
LOC: PT 13:06
PROVIDERS: Visit Provider Family Medicine
DX: M54.6 Pain in thoracic spine (principal); M54.50 Low back pain, unspecified; M54.31 Sciatica, right side
CPT/HCPCS: 97163

== ENCOUNTER 2023-10-11 09:17 | Outpatient (CLI) | payer MEDICARE, MEDICAID, SELFPAY ==
[2023-10-11 19:18] LABS: Alanine Aminotransferase 38 U/L (12-78); Albumin Level 4.1 g/dl (3.5-5.0); Albumin/Globulin Ratio 1.4 (1.1-1.8); Alkaline Phosphatase 59 U/L (38-126); Anion Gap 10.4 mEq/L (5-15); Aspartate Amino Transferase 33 U/L (17-59); Bilirubin,Total 0.7 mg/dl (0.2-1.3); Blood Urea Nitrogen 18 mg/dl (9-20); Calcium 9.8 mg/dl (8.4-10.2); Carbon Dioxide 26 mmol/L (22.0-30.0); Chloride 108 mmol/L (98-107); Estimated Glomerular Filt Rate 51 ml/min (>60); GFR (African American) 61 ML/MIN (>60); Glucose 107 mg/dl (74-100); Potassium 4.4 mmoL/L (3.5-5.1); Sodium 140 mmol/L (136-145); Total Protein,Serum 7.1 g/dl (6.3-8.2)
[2023-10-13 10:40] LABS: HBsAg Screen Negative (Negative); HCV Ab Non Reactive (Non Reactive); Hep A Ab, IGM Negative (Negative); Hep B Core Ab, IgM Negative (Negative)
== END 2023-10-11 23:59 | disposition home or self-care (01) ==
LOC: LAB.DROPOF 10-12 09:20
PROVIDERS: PCP Family Medicine; Visit Provider Family Medicine
DX: R31.9 Hematuria, unspecified (principal); N39.0 Urinary tract infection, site not specified; R17 Unspecified jaundice
CPT/HCPCS: 80053; 80074; 87086

== ENCOUNTER 2023-10-24 15:24 | Outpatient (CLI) | payer MEDICARE, MEDICAID, SELFPAY ==
[2023-10-24 16:11] LABS: Blood Urea Nitrogen 19 mg/dl (9-20); Estimated Glomerular Filt Rate 61 ml/min (>60); GFR (African American) 73 ML/MIN (>60)
[2023-10-26 11:33] LABS: PSA, Free 0.13 ng/mL; Prostate Specific Ag 0.6 ng/mL (0.0-4.0)
== END 2023-10-24 23:59 | disposition home or self-care (01) ==
LOC: LAB 15:25
PROVIDERS: PCP Family Medicine; Visit Provider Urology
DX: R31.9 Hematuria, unspecified (principal); N40.1 Benign prostatic hyperplasia with lower urinary tract symptoms
CPT/HCPCS: 36415; 82565; 84153; 84154; 84520

== ENCOUNTER 2023-11-08 07:55 | Outpatient (CLI) | payer MEDICARE, MEDICAID, SELFPAY ==
--- NOTE | 2023-11-08 07:56 | CT_ITS ---
FINAL REPORT CLINICAL HISTORY: Hematuria FINDINGS: There is scarring at the lung bases. There is moderate fatty infiltration of the liver. The gallbladder is present. There are calcified granulomas in the spleen. The adrenals are normal. The pancreas is unremarkable. The kidneys enhance appropriately. There is a 1.7 cm ovoid nodule along the left lateral border of the distal abdominal aorta. This is well seen on image 61 of series 5 and may represent an enlarged lymph node. There is mild stranding surrounding this presumed lymph node. Precontrast images demonstrate no nephrolithiasis. IMPRESSION: Presumed, enlarged lymph node along the left lateral border of the distal abdominal aorta. Moderate fatty liver. Reviewed, Interpreted and Dictated by Uzair Jenkins MD Transcribed by Chata Castillo Authenticated and . [facility]
[2023-11-08] MEDS: IOPAMIDOL-370 (76%);100ML BOTTLE 75 ML IV (08:14)
[2023-11-08] MEDS: SODIUM CHLORIDE 0.9% 10ML SYR (RAD ONLY) 10 ML IV (08:14)
== END 2023-11-08 23:59 | disposition home or self-care (01) ==
LOC: RAD 07:56
PROVIDERS: PCP Family Medicine; Visit Provider Urology
DX: R31.9 Hematuria, unspecified (principal)
CPT/HCPCS: 74178; Q9967

== ENCOUNTER 2023-11-17 11:38 | Outpatient (CLI) | payer MEDICARE, MEDICAID, SELFPAY ==
--- NOTE | 2023-11-17 11:42 | XR_ITS ---
FINAL REPORT CLINICAL HISTORY: right hip pain STANDING AND SUPINE FINDINGS: RIGHT HIP Three views of the right hip demonstrate no acute fracture or dislocation. The joint spaces appear normal. The visualized bony structures are well aligned. No soft tissue abnormality is seen. IMPRESSION: No acute bony abnormality. Reviewed, Interpreted and Dictated by Rush Davis III, MD Transcribed by Tana Sandoval Authenticated and [facility]
[2023-11-17 12:29] LABS: Basophils % 0.4 % (0.1-2.0); Eosinophils # 0.3 K/mm3 (0.0-0.4); Eosinophils % 3.1 % (0.1-12.0); Hematocrit 46.7 % (42.0-52.0); Hemoglobin 15.3 g/dL (14.1-18.0); Lymphocytes # 2.1 K/mm3 (0.7-4.5); Lymphocytes % 23.1 % (10-50); Mean Corpuscular HGB Conc 32.7 g/dL (31.8-35.4); Mean Corpuscular Hemoglobin 30.8 pg (27.0-31.2); Mean Corpuscular Volume 94.1 fl (80-94); Mean Platelet Volume 8.2 fl (7.4-10.4); Monocytes # 0.6 K/mm3 (0.1-1.0); Monocytes % 6.4 % (1.7-9.3); Neutrophils # 6.1 K/mm3 (1.8-7.8); Platelet Count 314 K/mm3 (142-424); Red Blood Count 4.97 M/mm3 (4.60-6.20); Red Cell Distribution Width 14.1 % (11.5-17.5); White Blood Count 9.2 K/mm3 (4.8-10.8)
[2023-11-17 14:23] LABS: Albumin Level 4.2 g/dl (3.5-5.0); Chloride 108 mmol/L (98-107); Potassium 4.3 mmoL/L (3.5-5.1); Sodium 138 mmol/L (136-145)
[2023-11-17 14:25] LABS: Blood Urea Nitrogen 18 mg/dl (9-20); Estimated Glomerular Filt Rate 61 ml/min (>60); GFR (African American) 73 ML/MIN (>60)
[2023-11-17 14:26] LABS: Alanine Aminotransferase 33 U/L (12-78); Albumin/Globulin Ratio 1.5 (1.1-1.8); Alkaline Phosphatase 61 U/L (38-126); Anion Gap 13.3 mEq/L (5-15); Aspartate Amino Transferase 29 U/L (17-59); Bilirubin,Total 0.6 mg/dl (0.2-1.3); Calcium 8.9 mg/dl (8.4-10.2); Carbon Dioxide 21 mmol/L (22.0-30.0); Chol/HDL Ratio 9.3 (1-3.5); Cholesterol 269 mg/dl (140-200); Globulin 2.8 g/dL (1.3-3.2); Glucose 135 mg/dl (74-100); HDL Cholesterol 29 mg/dl (40-60); Triglycerides 196 mg/dl (30-150); VLDL Cholesterol 39 mg/dL (0-40)
== END 2023-11-17 23:59 | disposition home or self-care (01) ==
LOC: LAB 11:40
PROVIDERS: PCP Family Medicine; Visit Provider Family Medicine
DX: M25.551 Pain in right hip (principal); E83.10 Disorder of iron metabolism, unspecified; E11.9 Type 2 diabetes mellitus without complications
CPT/HCPCS: 36415; 73502; 80053; 80061; 83036; 85025

== ENCOUNTER 2023-11-25 10:00 | Day surgery (SDC) | payer MEDICARE, MEDICAID, SELFPAY ==
[2023-11-25 10:15] VITALS: BMI 32.5
[2023-11-25 10:16] VITALS: BP 146/71; PULSE 86; RESP 18; TEMP 36.7; O2SAT 96
[2023-11-25 10:27] LABS: POC Glucose,Bedside 151 (70-110)
[2023-11-25] MEDS: 0.9 % SODIUM CHLORIDE 1000ML 1,000 ML 25 ML IV (10:38)
[2023-11-25 10:42] VITALS: BP 137/66; PULSE 56; RESP 18; TEMP 36.7; O2SAT 96
--- NOTE | 2023-11-25 10:42 | HMH.PROCNOTE ---
[facility] Procedure Note Date: 11/25/23 Time: 10:42 Procedure Note:: Chart review: The patient comes for further evaluation of hematuria. The CT scan is unremarkable except for an abnormal lymph node which the primary care doctor knows about. He is on dutasteride and Ditropan. He might benefit with Flomax being added. He had an episode of painless gross hematuria. He is corrected PSA is 1.2 on 11/04. Preop diagnosis: Hematuria/BPH Postop diagnosis: BPH/early urethral stricture/hematuria Operative note: The patient was brought to the cystoscopy suite. He was prepped and draped in the usual fashion. In the pendulous urethra the patient has an annular mid urethral scar that easily accepts a 16 Hungarian cystoscope. From the level of the verumontanum the patient has grade 1-2 prostate obstruction. The bladder itself has fine trabeculation. There is no evidence of bladder stone tumor hemorrhage or infection. The ureteral orifice ease are normal bilaterally.
== END 2023-11-25 10:49 | disposition home or self-care (01) ==
PROVIDERS: PCP Family Medicine; Visit Provider Urology
PROC: 0TJB8ZZ Inspection of Bladder, Via Natural or Artificial Opening Endoscopic (ICD-10-PCS; CPT 52000; principal; 2023-11-25 11:15)
DX: R31.9 Hematuria, unspecified (principal); N40.1 Benign prostatic hyperplasia with lower urinary tract symptoms; N35.919 Unspecified urethral stricture, male, unspecified site; E11.9 Type 2 diabetes mellitus without complications; Z79.84 Long term (current) use of oral hypoglycemic drugs
CPT/HCPCS: 52000; 82962; J7030

== ENCOUNTER 2024-01-16 13:47 | Emergency (ER) | payer MEDICARE, MEDICAID, SELFPAY ==
[2024-01-16] VITALS (7 sets, daily range): BP systolic 117–147; BP diastolic 73–104; PULSE 44–66; RESP 11–22; TEMP 36.6–36.7; O2SAT 91–97; BMI 31.7
--- NOTE | 2024-01-16 13:45 | ECG_ITS ---
APPROVED REPORT Exam: Resting ECG HR:53 bpm ECG Measurements Heart Rate 53 AXES GA 146 P 47 QRSd 100 QRS -11 QT 381 T 39 QTc 364 Conclusion Sinus bradycardia Incomplete right bundle branch block Old septal NV Electronically signed by : CHARU KEITH, 01/17/2024 15:04:10
--- NOTE | 2024-01-16 14:12 | XR_ITS ---
PROCEDURE INFORMATION: Exam: XR Chest Exam date and time: 01/16/2024 2:13 PM Age: 68 years old Clinical indication: Sternal or substernal pain; Additional info: Substernal cp TECHNIQUE: Imaging protocol: Radiologic exam of the chest. Views: 1 view. COMPARISON: CT ANGIO CHEST 11/08/2022 4:55 PM FINDINGS: Lungs: No evidence of airspace infiltrate. No pulmonary edema. Calcified pulmonary granuloma in the left lower lobe consistent with chronic sequelae of prior granulomatous disease, unchanged. Pleural spaces: No visible pleural effusion. No pneumothorax. Heart/Mediastinum: Cardiomediastinal silouhette is within normal limits. Bones/joints: No evidence of acute osseous abnormality. IMPRESSION: No acute findings.
[2024-01-16 14:23] LABS: Basophils # 0.1 K/mm3 (0-0.2); Basophils % 0.6 % (0.1-2.0); Eosinophils # 0.2 K/mm3 (0.0-0.4); Eosinophils % 1.8 % (0.1-12.0); Hematocrit 45.8 % (42.0-52.0); Hemoglobin 15.8 g/dL (14.1-18.0); Lymphocytes % 20.7 % (10-50); Mean Corpuscular HGB Conc 34.6 g/dL (31.8-35.4); Mean Corpuscular Hemoglobin 30.1 pg (27.0-31.2); Mean Corpuscular Volume 87.1 fl (80-94); Mean Platelet Volume 7.7 fl (7.4-10.4); Monocytes # 0.7 K/mm3 (0.1-1.0); Monocytes % 6.9 % (1.7-9.3); Neutrophils # 6.7 K/mm3 (1.8-7.8); Platelet Count 288 K/mm3 (142-424); Red Blood Count 5.26 M/mm3 (4.60-6.20); White Blood Count 9.6 K/mm3 (4.8-10.8)
[2024-01-16 14:24] LABS: Chloride 104 mmol/L (98-107)
[2024-01-16] MEDS: ASPIRIN 81MG CHEWABLE TABLET 324 MG PO (14:24)
[2024-01-16] MEDS: ALUMINUM/MAGNESIUM/SIMETHICONE 30ML UDC 30 ML PO (14:24)
[2024-01-16 14:25] LABS: Albumin Level 4.4 g/dl (3.5-5.0); Potassium 3.9 mmoL/L (3.5-5.1); Sodium 141 mmol/L (136-145)
[2024-01-16 14:27] LABS: Alanine Aminotransferase 35 U/L (12-78); Anion Gap 11.9 mEq/L (5-15); Aspartate Amino Transferase 31 U/L (17-59); Blood Urea Nitrogen 18 mg/dl (9-20); Carbon Dioxide 29 mmol/L (22.0-30.0); Creatinine Clearance Estimated 79 mL/min (50-200); Estimated Glomerular Filt Rate 55 ml/min (>60); GFR (African American) 67 ML/MIN (>60)
[2024-01-16 14:28] LABS: Albumin/Globulin Ratio 1.4 (1.1-1.8); Alkaline Phosphatase 53 U/L (38-126); Bilirubin,Total 0.6 mg/dl (0.2-1.3); Calcium 8.8 mg/dl (8.4-10.2); Globulin 3.2 g/dL (1.3-3.2); Glucose 117 mg/dl (74-100); Lipase 99 U/L (23-300); Total Protein,Serum 7.6 g/dl (6.3-8.2)
[2024-01-16 14:40] LABS: Troponin I < 0.01 ng/ml (0.00-0.034)
--- NOTE | 2024-01-16 15:01 | ED_ITS ---
Discharge Plan Disposition Patient Disposition: Home, Self-Care Prescriptions Prescriptions: No Action loratadine [Claritin] 10 mg tablet 10 mg PO DAILY Januvia 100 mg tablet 100 mg PO DAILY Qty: 30 5RF oxybutynin chloride 10 mg tablet extended release 24hr 10 mg PO DAILY Qty: 90 3RF tamsulosin [Flomax] 0.4 mg capsule 0.4 mg PO DAILY Qty: 30 3RF aspirin [Aspirin Childrens] 81 mg tablet,chewable 81 mg PO DAILY pantoprazole 40 mg tablet,delayed release (DR/EC) 40 mg PO HS Qty: 30 5RF Patient Comments: TAKE 1 TABLET BY MOUTH ONCE DAILY ezetimibe [Zetia] 10 mg tablet 10 mg PO DAILY Qty: 30 2RF hydrocodone-acetaminophen 5-325 mg tablet 0.5 tab PO Q8H PRN (Reason: pain) 30 Days Qty: 45 0RF Referrals Follow up/Referrals: Malachi Yang MD [Staff Physician] - See instructions Melvin Spencer MD [Primary Care Provider] - See instructions Activity Restrictions/Add. Instructions Additional Instructions/Restrictions: Please follow-up with Dr. Yang in our cardiology clinic for further evaluation of your heart there is no evidence of any cardiopulmonary emergency today. Clinical Impressions Clinical Impression: Chest pain Print Language Print Language: Urdu Discharge ED Provider: Ki Ramirez HPI <Ki Ramirez MD - Last Filed: 01/16/24 15:06> General Chief Complaint: Chest Pain Stated Complaint: Chest Pain Time Seen by Provider: 01/16/24 13:53 Mode of Arrival: Ambulatory Source of Information: Patient Limitations: No Limitations Description of Symptoms (Recalled from ER Triage Doc. by RN): Reports being seen at Dr. Adame office related to burning in his epigastric area at night for approx 1 month. Also reports that he is out of his Oxycodone that he takes for his back pain. History of Present Illness HPI narrative: Please note that above description of symptoms, in this electronic medical record under categorization of recalled from ER triage doctor by RN are reflective of an initial nursing assessment, however, is not reflective of my full history and physical exam that was personally taken and clarified. Consequentially, this preceding description of symptoms, which may include the patient's categorized chief complaint in the EMR, do not reflect my personal clinical impression, and the ultimate description of history of present illness and patient stated complaints should be deferred to this section of the note. Unless stated otherwise or congruent with this section of the note, additional signs, symptoms, or incongruence should be interpreted as inaccurate with my clinical impression. Related Data Home Medications ?Medication ?Instructions ?Recorded ?Confirmed loratadine 10 mg tablet (Claritin) 10 mg PO DAILY allergies 04/05/22 01/16/24 aspirin 81 mg chewable tablet 81 mg PO DAILY 11/16/23 01/16/24 (Aspirin Childrens) Previous Rx's ?Medication ?Instructions ?Recorded sitagliptin phosphate 100 mg 100 mg PO DAILY Diabetes #30 tabs 08/02/23 tablet (Januvia) pantoprazole 40 mg tablet,delayed 40 mg PO HS acid reflux #30 tabs 11/02/23 release ezetimibe 10 mg tablet (Zetia) 10 mg PO DAILY #30 tabs 11/18/23 oxybutynin chloride 10 mg 10 mg PO DAILY #90 tabs 11/21/23 tablet,extended release 24 hr tamsulosin 0.4 mg capsule (Flomax) 0.4 mg PO DAILY #30 caps 11/21/23 hydrocodone 5 mg-acetaminophen 325 0.5 tab PO Q8H PRN pain 1 month 12/19/23 mg tablet #45 tabs Allergies Allergy/AdvReac Type Severity Reaction Status Date / Time metformin Allergy Rash Verified 01/16/24 13:04 [id number] Reductase Allergy Dizziness Verified 01/16/24 13:04 Inhibitor PFS <Ki Ramirez MD - Last Filed: 01/16/24 15:06> [facility] Disclaimer: The information contained in this section may have been updated after the patient was seen, as this information can be updated by other users. Medical History (Updated 01/16/24 @ 18:04 by Roxie Vivas MD) Chest pain Right hip pain Melanoma Kidney stone Sleep apnea History of cataract History of anemia Carpal tunnel syndrome of right wrist COPD (chronic obstructive pulmonary disease) Skin cancer Hyperlipidemia Diabetes GERD (gastroesophageal reflux disease) Seasonal allergies Surgical History History of dental surgery History of cataract surgery H/O shoulder surgery Family History Other Eye problems Family history of cancer Kidney problem Social History Smoking Status: Current every day smoker tobacco type: cigarettes packs per day: 1 alcohol intake: never substance use type: marijuana current occupational status: retired and disabled Travel in the last 8 weeks: None household members: significant other housing: house marital status: life partner caffeine: Yes Other Medical History Have you received the Pneumonia Vaccine: Yes <Ki Ramirez MD - Last Filed: 01/16/24 15:06> ROS Obtained: Yes All systems reviewed & no additional complaints except as documented Physical Exam <Ki Ramirez MD - Last Filed: 01/16/24 15:06> General General appearance: alert Neck Neck exam: Present trachea midline Chest Chest inspection: Present normal inspection and symmetric chest wall rise Respiratory Respiratory exam: Present normal lung sounds bilaterally; Absent respiratory distress, wheezes, stridor, accessory muscle use or prolonged expiratory phase Cardiovascular Cardiovascular exam: Present regular rate, normal rhythm and other (Pulses equal and symmetric in upper and lower extremities) Extremities Exam Extremities exam: Absent edema Neurological Exam Neurological exam: Present alert, oriented X3 and CN II-XII intact Skin Skin exam: Present warm and dry; Absent cyanosis, diaphoresis or pallor HEART Score <Ki Ramirez MD - Last Filed: 01/16/24 15:06> HEART Score HEART Score assessment performed?: Yes History (anamnesis): Slightly suspicious ECG: Normal Age: 45-65 years Risk factors: 3 or more risk factors Troponin: </= normal limit HEART Score: 3 <Roxie Vivas MD - Last Filed: 01/16/24 18:06> HEART Score HEART Score: 3 Critical Care <Ki Ramirez MD - Last Filed: 01/16/24 15:06> Critical Care Time Critical Care Time: No Medical Decision Making <Ki Ramirez MD - Last Filed: 01/16/24 15:06> Medical Records Medical records reviewed: Yes I reviewed the patient's medical records. Chi Inquiry Pt receiving controlled substance: No Chi was queried for this patient: No Vital Signs Vital Signs: 01/16/24 13:47 01/16/24 14:30 01/16/24 15:00 Temperature 98.1 F Temperature Source Oral Pulse Rate 47 L 44 L Pulse Rate [Radial] 66 Respiratory Rate 13 11 L 11 L Blood Pressure 117/77 123/78 Blood Pressure [Right Arm] 147/86 H Blood Pressure Mean 94 94 Blood Pressure Mean [Right Arm] 106 Blood Pressure Source [Right Arm] Automatic Cuff Blood Pressure Position [Right Arm] Sitting 02 Sat by Pulse Oximetry 97 91 L 94 L Oxygen Delivery Method Room Air 01/16/24 15:30 01/16/24 16:00 01/16/24 16:31 Temperature Temperature Source Pulse Rate 52 L 62 49 L Pulse Rate [Radial] Respiratory Rate 13 14 22 Blood Pressure 124/104 H 119/73 129/76 Blood Pressure [Right Arm] Blood Pressure Mean 108 91 100 Blood Pressure Mean [Right Arm] Blood Pressure Source [Right Arm] Blood Pressure Position [Right Arm] 02 Sat by Pulse Oximetry 97 95 95 Oxygen Delivery Method Lab Data Labs: Lab Results 01/16/24 13:55: HIV 1&2 Antibody Rapid Nonreactive 01/16/24 14:00: WBC 9.6, RBC 5.26, Hgb 15.8, Hct 45.8, MCV 87.1, MCH 30.1, MCHC 34.6, RDW 14.0, Plt Count 288, MPV 7.7, Neut % (Auto) 70.0, Lymph % (Auto) 20.7, [place] % (Auto) 6.9, Eos % (Auto) 1.8, Baso % (Auto) 0.6, Neut # (Auto) 6.7, Lymph # (Auto) 2.0, [place] # (Auto) 0.7, Eos # (Auto) 0.2, Baso # (Auto) 0.1, Sodium 141, Potassium 3.9, Chloride 104, Carbon Dioxide 29, Anion Gap 11.9, BUN 18, C reatinine 1.30 H, Estimated Creat Clear 79, Estimated GFR 55 L, Est GFR ( Amer) 67, Glucose 117 H, Calcium 8.8, Total Bilirubin 0.6, AST 31, ALT 35, Alkaline Phosphatase 53, Troponin I < 0.01, Total Protein 7.6, Albumin 4.4, Globulin 3.2, Albumin/Globulin Ratio 1.4, Lipase 99 01/16/24 16:40: Troponin I < 0.01 01/16/24 14:00 01/16/24 14:00 Response Orders (Tests/Meds): ED MEDICATIONS Discontinued Medications Generic Name Dose Route Start Last Admin Trade Name Mac PRN Reason Stop Dose Admin Al Hydrox/Mg Hydrox/Simethicone 30 ml 01/16/24 14:12 01/16/24 14:24 Aluminum/Magnesium/Simethicone 30ml Udc PO 01/16/24 14:13 30 ml ONCE ONE Administration Aspirin 324 mg 01/16/24 14:12 01/16/24 14:24 Aspirin 81mg Chewable Tablet PO 01/16/24 14:13 324 mg ONCE ONE Administration ORDERS Category Date Time Status CXR --portable [XR chest portable] Stat Exams 01/16/24 14:12 Completed CBC w/Auto Diff [Complete Blood Count Auto Diff] Stat Lab 01/16/24 14:00 Completed CMP [Comprehensive Metabolic Panel] Stat Lab 01/16/24 14:00 Completed HIV (1&2) Antibody Rapid Stat Lab 01/16/24 13:55 Completed Hep C Ab with Reflex to RNA Stat Lab 01/16/24 13:55 Received Lipase Stat Lab 01/16/24 14:00 Completed Trop I [Troponin I] Stat Lab 01/16/24 14:00 Completed Troponin I Q3H Lab 01/16/24 16:40 Completed Troponin I Q3H Lab 01/16/24 20:15 Ordered MDM Narrative Medical Decision Narrative: 68-year-old male history of GERD, hypertension, hyperlipidemia, diabetes, tobacco use disorder presenting with intermittent chest pains. Patient states that chest pain started a couple days ago, on and off. Worse at night after dinner while he sitting in his chair, intermittent, usually resolve themselves with him curling up in position and holding a pillow against his chest and abdomen. Patient was seeing his family doctor today, 01/15 in the office, started having these chest pains again, was sent to the ER for further evaluation. Patient states the chest pains are currently present. He states that they are intermittent, epigastric, do not radiate. Associated with no nausea, vomiting, diaphoresis, syncope. It is a strong, intense burn/pressure. History was obtained via conversation with patient. On arrival, patient hemodynamically stable, alert, oriented x4, appropriate, GCS 15, moving all extremities spontaneously, pupils equal and reactive to light. Full physical exam performed and significant for well-appearing male in no acute distress. Cardiopulmonary exam within normal limits. Lower extremity without edema. Pulses equal and symmetric. Abdomen soft, nontender, nondistended. Overall unremarkable. Differential includes microvascular coronary artery disease, CHF, ACS, NM, coronary artery dissection, pneumothorax, PE, dissection, pericarditis, myocarditis, pneumothorax, aortic aneurysm, pneumonia, bronchitis, among others. Patient was given 324 mg aspirin and Maalox for symptomatic management and correction of underlying abnormalities. Patient placed on continuous cardiac monitoring and continuous pulse ox with initial blood pressure 147/86, heart rate 66, saturation 97% on room air. Independent interpretation of EKG shows sinus bradycardia with incomplete right bundle branch block morphology. No acute ischemic change. DC 146, QRS 100, QTc 364. Workup independently interpreted and significant for nonactionable CBC or chemistry, negative initial troponin. Lipase negative. On independent interpretation of imaging, no acute cardiopulmonary airspace disease. See radiology read for full review of final results. Heart score 3.Patient was placed in observation beginning at 2 PM in order to rule out evolving NM with delta troponins and determine need for admission versus home-going. The patient was provided serial exams, cardiac monitoring while awaiting results. Prior to dispo, care handed off to oncoming physician. Hydroelectric Production Technician disclaimer Much of this encounter note is an electronic oxide furnace tender spoken language to printed text. Electronic oxide furnace tender of the spoken language may permit errors. Although I have reviewed the note, some errors may still exist. <Roxie Vivas MD - Last Filed: 01/16/24 18:06> Vital Signs Vital Signs: 01/16/24 13:47 01/16/24 14:30 01/16/24 15:00 Temperature 98.1 F Temperature Source Oral Pulse Rate 47 L 44 L Pulse Rate [Radial] 66 Respiratory Rate 13 11 L 11 L Blood Pressure 117/77 123/78 Blood Pressure [Right Arm] 147/86 H Blood Pressure Mean 94 94 Blood Pressure Mean [Right Arm] 106 Blood Pressure Source [Right Arm] Automatic Cuff Blood Pressure Position [Right Arm] Sitting 02 Sat by Pulse Oximetry 97 91 L 94 L Oxygen Delivery Method Room Air 01/16/24 15:30 01/16/24 16:00 01/16/24 16:31 Temperature Temperature Source Pulse Rate 52 L 62 49 L Pulse Rate [Radial] Respiratory Rate 13 14 22 Blood Pressure 124/104 H 119/73 129/76 Blood Pressure [Right Arm] Blood Pressure Mean 108 91 100 Blood Pressure Mean [Right Arm] Blood Pressure Source [Right Arm] Blood Pressure Position [Right Arm] 02 Sat by Pulse Oximetry 97 95 95 Oxygen Delivery Method Lab Data Lab results reviewed: Yes I reviewed the patient's lab results. Labs: Lab Results 01/16/24 13:55: HIV 1&2 Antibody Rapid Nonreactive 01/16/24 14:00: WBC 9.6, RBC 5.26, Hgb 15.8, Hct 45.8, MCV 87.1, MCH 30.1, MCHC 34.6, RDW 14.0, Plt Count 288, MPV 7.7, Neut % (Auto) 70.0, Lymph % (Auto) 20.7, [place] % (Auto) 6.9, Eos % (Auto) 1.8, Baso % (Auto) 0.6, Neut # (Auto) 6.7, Lymph # (Auto) 2.0, [place] # (Auto) 0.7, Eos # (Auto) 0.2, Baso # (Auto) 0.1, Sodium 141, Potassium 3.9, Chloride 104, Carbon Dioxide 29, Anion Gap 11.9, BUN 18, C reatinine 1.30 H, Estimated Creat Clear 79, Estimated GFR 55 L, Est GFR ( Amer) 67, Glucose 117 H, Calcium 8.8, Total Bilirubin 0.6, AST 31, ALT 35, Alkaline Phosphatase 53, Troponin I < 0.01, Total Protein 7.6, Albumin 4.4, Globulin 3.2, Albumin/Globulin Ratio 1.4, Lipase 99 01/16/24 16:40: Troponin I < 0.01 Response Orders (Tests/Meds): ED MEDICATIONS Discontinued Medications Generic Name Dose Route Start Last Admin Trade Name Freq PRN Reason Stop Dose Admin Al Hydrox/Mg Hydrox/Simethicone 30 ml 01/16/24 14:12 01/16/24 14:24 Aluminum/Magnesium/Simethicone 30ml Udc PO 01/16/24 14:13 30 ml ONCE ONE Administration Aspirin 324 mg 01/16/24 14:12 01/16/24 14:24 Aspirin 81mg Chewable Tablet PO 01/16/24 14:13 324 mg ONCE ONE Administration ORDERS Category Date Time Status CXR --portable [XR chest portable] Stat Exams 01/16/24 14:12 Completed CBC w/Auto Diff [Complete Blood Count Auto Diff] Stat Lab 01/16/24 14:00 Completed CMP [Comprehensive Metabolic Panel] Stat Lab 01/16/24 14:00 Completed HIV (1&2) Antibody Rapid Stat Lab 01/16/24 13:55 Completed Hep C Ab with Reflex to RNA Stat Lab 01/16/24 13:55 Received Lipase Stat Lab 01/16/24 14:00 Completed Trop I [Troponin I] Stat Lab 01/16/24 14:00 Completed Troponin I Q3H Lab 01/16/24 16:40 Completed Troponin I Q3H Lab 01/16/24 20:15 Ordered MDM Narrative Medical Decision Narrative: 68-year-old male history of GERD, hypertension, hyperlipidemia, diabetes, tobacco use disorder presenting with intermittent chest pains. Patient states that chest pain started a couple days ago, on and off. Worse at night after dinner while he sitting in his chair, intermittent, usually resolve themselves with him curling up in position and holding a pillow against his chest and abdomen. Patient was seeing his family doctor today, 01/15 in the office, started having these chest pains again, was sent to the ER for further evaluation. Patient states the chest pains are currently present. He states that they are intermittent, epigastric, do not radiate. Associated with no nausea, vomiting, diaphoresis, syncope. It is a strong, intense burn/pressure. History was obtained via conversation with patient. On arrival, patient hemodynamically stable, alert, oriented x4, appropriate, GCS 15, moving all extremities spontaneously, pupils equal and reactive to light. Full physical exam performed and significant for well-appearing male in no acute distress. Cardiopulmonary exam within normal limits. Lower extremity without edema. Pulses equal and symmetric. Abdomen soft, nontender, nondistended. Overall unremarkable. Differential includes microvascular coronary artery disease, CHF, ACS, NM, coronary artery dissection, pneumothorax, PE, dissection, pericarditis, myocarditis, pneumothorax, aortic aneurysm, pneumonia, bronchitis, among others. Patient was given 324 mg aspirin and Maalox for symptomatic management and correction of underlying abnormalities. Patient placed on continuous cardiac monitoring and continuous pulse ox with initial blood pressure 147/86, heart rate 66, saturation 97% on room air. Independent interpretation of EKG shows sinus bradycardia with incomplete right bundle branch block morphology. No acute ischemic change. DC 146, QRS 100, QTc 364. Workup independently interpreted and significant for nonactionable CBC or chemistry, negative initial troponin. Lipase negative. On independent interpretation of imaging, no acute cardiopulmonary airspace disease. See radiology read for full review of final results. Heart score 3.Patient was placed in observation beginning at 2 PM in order to rule out evolving NM with delta troponins and determine need for admission versus home-going. The patient was provided serial exams, cardiac monitoring while awaiting results. Prior to dispo, care handed off to oncoming physician. Hydroelectric Production Technician disclaimer Much of this encounter note is an electronic oxide furnace tender spoken language to printed text. Electronic oxide furnace tender of the spoken language may permit errors. Although I have reviewed the note, some errors may still exist. This is Dr. Vivas took over from Dr. Ramirez around 3 PM following up on patient second troponin which came back undetectably low. Patient looks very well on my reassessment he has no ongoing symptoms states he feels much better after eating. Chest x-ray was performed which I personally interpreted which shows no acute cardiopulmonary emergency. Patient also had a question about a recent CT scan of the abdomen and pelvis that showed a 1 cm periaortic lymph node which is nonspecific I discussed this with him and he will follow-up with Dr. Leoncio Morrison regarding this but seems that this was unremarkable and no surrounding significant lymphadenopathy or malignancy likely just needs to have this watched over time. This has nothing to do with his presentation today. He is very well-appearing on final assessment and was discharged and told to follow-up closely with Dr. Yang. He was agreeable to this plan was discharged in improved and stable condition peer
[2024-01-16 15:32] LABS: HIV (1&2) Antibody Rapid NONREACTIVE (NONREACTIVE)
[2024-01-16 17:22] LABS: Troponin I < 0.01 ng/ml (0.00-0.034)
--- NOTE | 2024-01-16 17:56 | PC.NURSE ---
DR ALVARADO AT BEDSIDE
[2024-01-17 08:33] LABS: HCV Ab Non Reactive (Non Reactive)
== END 2024-01-16 18:05 | disposition home or self-care (01) ==
PROVIDERS: Emergency Provider Emergency Medicine; PCP Family Medicine
DX: R07.9 Chest pain, unspecified (principal)
CPT/HCPCS: 71045; 80053; 83690; 84484; 85025; 86803; 87389; 93005; 99284

== ENCOUNTER 2024-01-23 19:26 | Outpatient (CLI) | payer MEDICARE, MEDICAID, SELFPAY | END 2024-01-23 23:59 | disposition home or self-care (01) | LOC: LAB.DROPOF 19:27 | PROVIDERS: PCP Family Medicine; Visit Provider Family Medicine | DX: N39.0 Urinary tract infection, site not specified (principal) | CPT/HCPCS: 87086 ==

== ENCOUNTER 2024-02-14 14:44 | Outpatient (CLI) | payer MEDICARE, MEDICAID, SELFPAY | END 2024-02-14 23:59 | disposition home or self-care (01) | PROVIDERS: PCP Family Medicine; Visit Provider Otolaryngology | DX: Z02.9 Encounter for administrative examinations, unspecified (principal) ==

== ENCOUNTER 2024-02-16 13:08 | Outpatient (CLI) | payer MEDICARE, MEDICAID, SELFPAY ==
--- NOTE | 2024-02-16 13:12 | CT_ITS ---
FINAL REPORT TECHNIQUE: Axial images were obtained from the lung apex to the mid abdomen by computed tomography. This study was performed with techniques to keep radiation doses as low as reasonably achievable (ALARA). Individualized dose reduction techniques using automated exposure control or adjustment of mA and/or kV according to the patient's size were employed. CLINICAL HISTORY: lung cancer screening smokes 1 pk per day x 30 years copd COMPARISON: 05/18/2022 FINDINGS: CHEST CT LOW DOSE CTDI vol (mGy): 2.90 DLP (mGy-cm): 112.81 There is no axillary adenopathy. There is no hilar or mediastinal adenopathy. The heart is normal in size. There is no pericardial or pleural effusion. Lung window images demonstrate no suspicious infiltrate or nodule. There is a calcified granuloma in the left lower lobe. Limited images of the upper abdomen are unremarkable. IMPRESSION: Lung RADS category 1. Recommend 12 month follow-up low-dose chest CT. Reviewed, Interpreted and Dictated by Rush Davis III, MD Transcribed by Disha Alicia Authenticated and [facility]
[2024-02-22 06:15] LABS: D001-IgE D pteronyssinus <0.10 kU/L (Class 0); D002-IgE D farinae <0.10 kU/L (Class 0); E001-IgE Cat Dander <0.10 kU/L (Class 0); E005-IgE Dog Dander <0.10 kU/L (Class 0); E072-IgE Mouse Urine <0.10 kU/L (Class 0); G002-IgE Bermuda Grass <0.10 kU/L (Class 0); G006-IgE Timothy Grass <0.10 kU/L (Class 0); I006-IgE Cockroach, German <0.10 kU/L (Class 0); Immunoglobulin E, Total 14 IU/mL (6-495); M001-IgE Penicillium chrysogen <0.10 kU/L (Class 0); M002-IgE Cladosporium herbarum <0.10 kU/L (Class 0); M003-IgE Aspergillus fumigatus <0.10 kU/L (Class 0); M006-IgE Alternaria alternata <0.10 kU/L (Class 0); T001-IgE Maple/Box Elder <0.10 kU/L (Class 0); T003-IgE Common Silver Birch <0.10 kU/L (Class 0); T006-IgE Cedar, Mountain <0.10 kU/L (Class 0); T007-IgE Oak, White <0.10 kU/L (Class 0); T008-IgE Elm, American <0.10 kU/L (Class 0); T010-IgE Walnut <0.10 kU/L (Class 0); T011-IgE Maple Leaf Sycamore <0.10 kU/L (Class 0); T014-IgE Cottonwood <0.10 kU/L (Class 0); T015-IgE Ash, White <0.10 kU/L (Class 0); T022-IgE Pecan, Hickory <0.10 kU/L (Class 0); T070-IgE White Mulberry <0.10 kU/L (Class 0); W001-IgE Ragweed, Short <0.10 kU/L (Class 0); W011-IgE Thistle, Russian <0.10 kU/L (Class 0); W014-IgE Pigweed, Common <0.10 kU/L (Class 0); W018-IgE Sheep Sorrel <0.10 kU/L (Class 0)
== END 2024-02-16 23:59 | disposition home or self-care (01) ==
PROVIDERS: Nurse Practitioner; PCP Family Medicine; Visit Provider Family Medicine
DX: F17.210 Nicotine dependence, cigarettes, uncomplicated (principal); H93.8X3 Other specified disorders of ear, bilateral; R09.81 Nasal congestion; R49.0 Dysphonia; J30.9 Allergic rhinitis, unspecified; Z86.2 Personal history of diseases of the blood and blood-forming organs and certain disorders involving the immune mechanism
CPT/HCPCS: 36415; 71271; 82785; 86003; 86900; 86901

== ENCOUNTER 2024-04-30 14:25 | Outpatient (CLI) | payer MEDICARE, MEDICAID, SELFPAY ==
[2024-04-30 19:11] LABS: Hemoglobin A1C 6.4 % (4.0-6.0)
[2024-04-30 19:36] LABS: Albumin Level 4.7 g/dl (3.5-5.0); Chloride 102 mmol/L (98-107); Sodium 138 mmol/L (136-145)
[2024-04-30 19:37] LABS: Potassium 4.5 mmoL/L (3.5-5.1)
[2024-04-30 19:39] LABS: Alanine Aminotransferase 40 U/L (12-78); Albumin/Globulin Ratio 1.7 (1.1-1.8); Alkaline Phosphatase 65 U/L (38-126); Anion Gap 14.5 mEq/L (5-15); Aspartate Amino Transferase 32 U/L (17-59); Bilirubin,Total 0.6 mg/dl (0.2-1.3); Blood Urea Nitrogen 16 mg/dl (9-20); Carbon Dioxide 26 mmol/L (22.0-30.0); Cholesterol 288 mg/dl (140-200); Estimated Glomerular Filt Rate 61 ml/min (>60); GFR (African American) 73 ML/MIN (>60); Globulin 2.7 g/dL (1.3-3.2); Total Protein,Serum 7.4 g/dl (6.3-8.2); Triglycerides 283 mg/dl (30-150); VLDL Cholesterol 57 mg/dL (0-40)
[2024-04-30 19:40] LABS: Calcium 9.4 mg/dl (8.4-10.2); Chol/HDL Ratio 11.1 (1-3.5); Glucose 134 mg/dl (74-100); HDL Cholesterol 26 mg/dl (40-60)
[2024-04-30 19:55] LABS: Microalbumin/Creatinine Ratio 2.9
[2024-04-30 19:57] LABS: Direct LDL Cholesterol 209.53 mg/dL (100-129)
[2024-04-30 20:45] LABS: Creatinine,Urine Random 257 mg/dL (Not Estab.)
== END 2024-04-30 23:59 | disposition home or self-care (01) ==
LOC: LAB.DROPOF 05-01 14:37
PROVIDERS: PCP Family Medicine; Visit Provider Family Medicine
DX: E11.9 Type 2 diabetes mellitus without complications (principal)
CPT/HCPCS: 80053; 80061; 82043; 82570; 83036

== ENCOUNTER 2024-09-13 15:15 | Outpatient (CLI) | payer MEDICARE, MEDICAID, SELFPAY ==
--- OUTSIDE RECORDS SUMMARY | 2024-06-16 17:30 | XMS_ITS ---
Author Organization [facility] Address [address] [place] [address] Care Team Providers Care Resistor Tester Name Role Phone Melvin Israel Primary Care Provider Melvin Israel Unavailable Unavailable Migration, Provider Unavailable Unavailable Allergies Allergen (clinical drug ingredient) Drug/Non Drug Allergy documented on EMR Reaction Allergy Type Onset Date Status metformin metFORMIN rash Drug Allergy Active REASON FOR VISIT [facility] To [facility] Conversion Encounter Medications Medication SIG [...] Active Encounters Encounter Location Date Provider Diagnosis [facility] [address] [place] [address] 06/16/2024 Provider Migration Primary insomnia F51.01 Assessments [...] Notes * Thaddeus JULIOOB:07/1955 (69 yo M)Acc No.[id number]:06/16/2024 Patient: Vicky Thaddeus DICK Provider: Renan saul Migration :1955 A ge:68 Y S ex:Male Date:06/16/2024 Address:[address] [place] [phone] Pcp:Melvin Israel Subjective: * Chief Complaints: * [...] Electronic signature of Prov ider Migration on 09/17/2024 at 11:01 AM EDT Sign off status: Pending * Provider: Renan saul Migration Date: 0 06/16/2024 Generated for Gio ojeda/Memo/Priscilla on: 0 09/17/2024 11:01 AM EDT
[2024-09-13 19:38] LABS: Alanine Aminotransferase 37 U/L (12-78); Albumin Level 4.5 g/dl (3.5-5.0); Albumin/Globulin Ratio 1.7 (1.1-1.8); Alkaline Phosphatase 57 U/L (38-126); Anion Gap 12.9 mEq/L (5-15); Aspartate Amino Transferase 29 U/L (17-59); Bilirubin,Total 0.6 mg/dl (0.2-1.3); Blood Urea Nitrogen 14 mg/dl (9-20); Calcium 9.1 mg/dl (8.4-10.2); Carbon Dioxide 28 mmol/L (22.0-30.0); Chloride 99 mmol/L (98-107); Cholesterol 241 mg/dl (140-200); Creatinine,Serum 1.10 mg/dl (0.66-1.25); Estimated Glomerular Filt Rate 67 ml/min (>60); GFR (African American) 81 ML/MIN (>60); Globulin 2.7 g/dL (1.3-3.2); Glucose 139 mg/dl (74-100); HDL Cholesterol 30 mg/dl (40-60); Potassium 4.9 mmoL/L (3.5-5.1); Sodium 135 mmol/L (136-145); Total Protein,Serum 7.2 g/dl (6.3-8.2); Triglycerides 314 mg/dl (30-150)
[2024-09-13 20:17] LABS: Hemoglobin A1C 7.9 % (4.0-6.0)
--- OUTSIDE RECORDS SUMMARY | 2024-09-17 11:00 | XMS_ITS | Clinical Summary ---
Author Organization [facility] Address [address] [place] [address] Care Team Providers Care Strap Buckler Machine Name Role Phone Unavailable Primary Care Provider Unavailabl e Social History Tobacco Use Types Packs/Day Years Used Date Smoking Tobacco: Never Assessed Sex and Gender Information Value Date Recorded Sex Assigned at Not on file Legal Sex Male 3:56 PM EST Gender Identity Not on file Sexual Orientation Not on file Plan of Treatment Health Maintenance Due Date Last Done Comments [facility]-Depression Screening 1955 [facility]-Infant/Child/Adol SDOH Screenings 1955 [facility]- SDOH Screenings 07/17/1975 [facility]-Adult SDOH Screenings 07/17/1975 [facility]-DTaP,Tdap,and Td Vaccine s (1 - Tdap) 1976 CT Colonography 2002 Colonoscopy 2002 FIT-DNA 2002 FIT 2002 FOBT 2002 Sigmoidoscopy 2002 [facility]-Colorectal Cancer Screening 2002 [facility]-Zoster Vaccines (1 of 2) 07/17/2007 [facility]-Pneumococcal Vaccine: 50 + Years (2 of 2 - PCV) 09/22/2019 09/21/2018 [id number] Vaccine (1 - 20 24-25 season) 2023 [facility]-Influenza Vaccine (#1) 2024 [facility]-RSV Vaccine: 60+ Years o r (1 - 1-dose 75+ series) 2032 HPV Vaccines Aged Out No longer eligi ble based on patient's age to complete this topic [facility]-HIB Vaccines Aged Out No longer e ligible based on patient's age to complete this topic [facility]-Hepatitis A Vaccines Aged Out No longer eligible based on patient's age to complete this topic [facility]-IPV Vaccines Aged Out No longer e ligible based on patient's age to complete this topic [facility]-Rotavirus Vaccines Aged Out No lo nger eligible based on patient's age to complete this topic Insurance [employer]
--- OUTSIDE RECORDS SUMMARY | 2024-09-17 11:01 | XMS_ITS | Patient Health Record ---
Author Organization [facility] Address [address] [facility] [address] [place] [address] Care Team Providers Care Flow Floor Attendant Name Role Phone Melvin Israel Primary Care Provider [phone] Melvin Israel Unavailable Unavailable Migration, Provider Unavailable Unavailable Allergies Allergen (clinical drug ingredient) Drug/Non Drug Allergy documented on EMR Reaction Allergy Type Onset Date Status metformin metFORMIN rash Drug Allergy Active Reason For Referral No Information Medications Medication SIG (Take, Route, Frequency, Duration) Notes Start Date End Date Status Pantoprazole Sodium 40 MG 1 tab(s) orall y once a day; Duration: 30 days Active Etodolac 400 MG 1 tab(s) orally 2 ti mes a day; Duration: 90 days Active Clotrimazole-Betamethasone 1-0.05 % 1 case applied topically 2 times a day; Duration: 14 days 2022 Active buPROPion HCl ER (XL) 150 MG 1 tab(s) or ally every 24 hours; Duration: 90 day(s) 04/26/2022 Active Dutasteride 0.5 MG TAKE 1 CAPSULE BY [facility] ONCE DAILY; Duration: 90 Active Amitriptyline HCl 50 MG 1 tab(s) orally once a day (at bedtime); Duration: 30 days 10/19/2022 Active Ezetimibe 10 MG 1 tab(s) orally once a day; Duration: 90 days Active Loratadine 10 MG 1 tab(s) orally once a day; Duration: 90 days Active Losartan Potassium 25 MG 1 tab(s) orally once a day; Duration: 90 days Active Januvia 100 MG TAKE 1 TABLET BY [facility] DAILY (WITH BREAKFAST).; Duration: 90 Active Immunizations Vaccine Route Administration Date Status Comme nts Prevnar PCV-20 (Pneumococcal conjugate 20) IM Intramuscular 10/18/2022 Administered Pneumovax 23 Unknown 09/21/2018 Administered Boostrix IM Intramuscular 10/18/2022 Administered Social History Tobacco Use: Social History Observation Description Date Details (start date - stop date) Current Smoker NA - NA Smoking: Question Answer Notes Are you a: current smoker Problems Problem Type SNOMED Code ICD Code Onset Dates Problem Status W/U Status Risk Notes Problem Type 2 diabetes mellitus with other specified complication (E11.69) Active confirmed Problem Primary insomnia (4891617) Primary insomnia (F51.01) Active confirmed Problem Nicotine dependence (71440172) Personal history of nicotine dependence (Z87.891) Active confirmed Problem Type II diabetes mellitus without complication (958546018) Diabetes mellitus type 2, noninsulin dependent (E11.9) Active confirmed Problem Hyperlipidemia (29299066) Hyperlipemia, idiopathic familial (E78.5) Active confirmed Problem Obesity (926639294) Obesity, unspecified (E66.9) Active confirmed Problem History of malignant melanoma of the skin (267462785383) History of melanoma (Z85.820) Active confirmed Problem Primary hypertension (52764983) Primary hypertension (I10) Active confirmed Problem Sleep apnea (73990676) Sleep apnea in adult (G47.30) Active confirmed Encounters Encounter Location Date Provider Diagnosis [facility] [address] [place] [address] 06/16/2024 Provider Migration Primary insomnia F51.01 Assessments Encounter Date Diagnosis (ICD Code) Assessment Notes Treatment Notes Treatment Clinical Notes Section Notes 06/16/2024 Primary insomnia (ICD-10 - F51.01) Plan Of Treatment Pending Test Test Name Order Date X ray : Hand, Right 2022 Insurance Providers Payer Name Payer Address Payer Phone Subscriber Number Group Number Insured Name Patient Relationship to Insured Coverage Start Date Coverage End Date [employer] DUAL [address] [address] [place] [address] [id number] Thaddeus Leon Self - patient is the insured [employer] [place] [employer] [address] [address] [place] [address] [id number] CarolynThaddeus Self - patient is the insured Medical (General) History Medical History History ICD Code hypercholestrolemia type II diabetes Esophageal reflux Negative low dose CT scan 06/03 Surgical History Surgery Date(Month/Year) right rotator cuff tear repair spinal tap 3-4 years ago
--- OUTSIDE RECORDS SUMMARY | 2024-09-17 11:01 | XMS_ITS | Encounter Summary ---
Author Organization [facility] [place] [address] Care Team Providers Care Tax Intern Name Role Phone Param Mcmillan MD Primary Care Provider [phone] Kahlil Stovall MD Unavailable [phone] Dony Willett MD Unavailable Encounter Details Date Type Department Care Team (Late st Contact Info) Description 01/26/2016 Orders Only SEP Gastro [facility] [address] [facility] [address] [place] [address] Dony Willett MD [address] [place] [address] Social History Tobacco Use Types Packs/Day Years Used Date Smoking Tobacco: Every Day Cigarettes Smokeless Tobacco: Never Alcohol Use Standard Drinks/Week Comments Yes 0 (1 standard drink = 0.6 oz pur e alcohol) occas Sex and Gender Information Value Date Recorded Sex Assigned at Not on file Legal Sex Male 4:55 AM EDT Gender Identity Not on file Sexual Orientation Not on file documented as of this encounter Plan of Treatment Not on file documented as of this encounter Procedures Procedure Name Priority Date/Time Associated Diagnosis Comments [facility] EGD Routine 01/26/2016 1:00 PM EST documented in this encounter Results * [facility] EGD (01/26/2016 1:00 PM EST) 01/26/2016 1:00 PM EST Impressions [facility] - 01/26/2016 1:23 PM EST Normal esophagus. Erythema in the duodenal bulb compatible with duodenitis. Hiatal Hernia. Plan: Follow-up as needed This section is an excerpt of the full report. us Dony Willett MD GI PROCEDURE ORDERABLES Fin al Result [facility] [address] [place] [address] documented in this encounter Visit Diagnoses Not on filedocumented in this encounter Care Teams Tax Intern Relationship Specialty Start Date End Date Param Mcmillan MD [address] [place] [phone] PCP - General Family Medicine 04/23/15 07/06/22 [place] [address] [address] [facility] [place] [address] Dermatology 06/02/15 [place] [address] [address] [facility] [place] [address] Physician Internal Medicine-Gastroenterology 12/23/15 documented as of this encounter
--- OUTSIDE RECORDS SUMMARY | 2024-09-17 11:01 | XMS_ITS | Clinical Summary ---
Author Organization [facility] Address [address] [place] [address] Phone Care Team Providers Care Pie Topper Name Role Phone Kahlil Stovall MD Unavailable [phone] Dony Willett MD Unavailable [phone] Allergies Active Allergy Reactions Criticality Noted Date Comments Atorvastatin Other (See Comments) 10/21/2016 Dizziness Metformin Rash 11/17/2021 rash, significant with blistering Simvastatin 10/19/2016 Lightheadedness Medications aspirin 81 mg tabletIndications: myocardial infarction prevention Take 81 mg by mouth daily. Indications: treatment to prevent a heart attack 04/17/19 12 Active fluticasone propionate (FLONASE) 50 mcg/actuation Nasl [place], Suspension 1 [place] by Nasal route daily. 1 Bottle 5 09/22/19 19 Active diclofenac (VOLTAREN) 1 % Top GelIndications:Loc alized osteoarthritis of both hands JOSUÉ 2 GRAMS AA BID PRN 150 g 5 12/13/19 20 Active Additional Information Patient not taking.Reported on 11/17/2021 SUMAtriptan (IMITREX) 50 mg Oral TabletIndications: Intractable episodic paroxysmal hemicrania TAKE 1 TABLET BY MOUTH 1 TIME FOR UP TO 1 DOSE per day NEEDED 6 Tab 2 09/18/19 21 Active augmented betamethasone dipropionate (DIPROLENE-AF) 0.05 % Top CreamIndications:P rurigo nodularis Apply to arms twice daily for 2 weeks. Stop for 1 week. Repeat as necessary 50 g 10/29/19 21 Active albuterol (PROVENTIL HFA;VENTOLIN HFA) 90 mcg/actuation Inhl HFA Aerosol InhalerIndications :SOB (shortness of breath) on exertion Inhale 2 Puffs into the lungs every 4 hours as needed for Wheezing. 18 g 5 11/19/19 21 Active fluorouraciL (EFUDEX) 5 % Top CreamIndications:A ctinic keratosis Apply a pea sized amount of medication nightly to your nose. Wash off each morning. Perform for 4 weeks. Area will turn red and irritated. 40 g 06/26/19 22 Active traZODone (DESYREL) 50 mg Oral Tablet Take 1 Tablet by mouth nightly as needed for Sleep. 30 Tablet 5 08/28/19 22 Active etodolac (LODINE) 400 mg Oral TabletIndications: Chronic left hip pain TAKE 1 TABLET BY MOUTH TWICE DAILY 180 Tablet 1 12/29/19 22 Active SITagliptin phosphate (JANUVIA) 100 mg Oral Tablet Take 1 Tablet by mouth daily (with breakfast). 90 Tablet 1 03/11/20 22 Active pantoprazole (PROTONIX) 40 mg Oral Tablet, Delayed Release (E.C.)Indications: GERD without esophagitis TAKE 1 TABLET BY MOUTH ONCE DAILY 90 Tablet 06/10/19 23 Active dutasteride (AVODART) 0.5 mg Oral CapsuleIndications :BPH with urinary obstruction Take 1 Capsule by mouth daily. 30 Capsule 06/11/19 23 Active ezetimibe (ZETIA) 10 mg Oral TabletIndications: Elevated LDL cholesterol level Take 1 Tablet by mouth daily. 30 Tablet 06/11/19 23 Active loratadine (CLARITIN) 10 mg Oral TabletIndications: Seasonal allergic rhinitis due to pollen Take 1 Tablet by mouth daily. 30 Tablet 06/11/19 23 Active Active Problems Problem Noted Date Diagnosed Date Type 2 diabetes mellitus wit hout complication, without long-term current use of insulin 03/31/2021 COPD, mild 06/30/2018 Overview (06/30/2018): PFT 06/28>>NORMAL FEV1/FVC and TLC but low FEV1, suggestive of a mild non- specific ventilatory defect. MILD DECREASE IN DIFFUSING CAPACITY, corrected for hemoglobin. THIS PATTERN SUGGESTS PULMONARY VASCULAR DISORDERS, EARLY ILD or EARLY EMPHYSEMA. DDD (degenerative disc disease), cervical 2018 Obesity, Class I, BMI 30-34.9 03/01/2017 Overview (03/01/2017): Recommend multiple interventions to achieve a BMI of <30 Low fat, low CHO diet Limit between meal snacks Portion control meals Increase water intake, especially before mealtime Make smart choices for snacking - fresh vegetables vs chips Increase daily exercise Hyperlipidemia associated with type 2 diabetes m ellitus 10/19/2016 GERD without esophagitis 10/19/2016 Tobacco dependence 10/19/2016 Chronic lumbar radiculopathy 09/23/2016 Cervicalgia 02/10/2015 Rotator cuff tendinitis 02/10/2015 History of melanoma Overview (03/27/2009): Excision in 2006 Smoker JHONNY (generalized anxiety disorder) Resolved Problems Problem Noted Date Diagnosed Date Resolved Date Glucose intolerance (impaire d glucose tolerance) 07/27/2017 03/31/2021 Immunizations Immunization Administration Dates Next Due Pneumococcal Polysaccharide 23 Valent 09/21/2018 Tdap 03/01/2014 Surgical History Surgery Date Site/Laterality Comments SKIN BIOPSY Medical History Medical History Date Comments Arthritis Anxiety Cancer (HCC) GERD (gastroesophageal reflux disease) Family History Medical History Relation Name Comments Arthritis Brother Vision Loss Brother Cancer Father Heart Disease Father Arthritis Mother High Blood Pressure Mother Kidney Disease Mother Relation Name Status Comments Brother Alive Father Maternal Aunt Maternal Grandfather Maternal Grandmother Maternal Uncle Mother Alive Paternal Aunt Paternal Grandfather Paternal Grandmother Paternal Uncle Sister Alive Social History Tobacco Use Types Packs/Day Years Used Date Smoking Tobacco: Every Day Cigarettes 0.5 28.5 Started: 03/14/1996 Smokeless Tobacco: Never Tobacco Cessation:Ready to Q uit: No; Counseling Given: Yes Alcohol Use Standard Drinks/Week Comments Yes 0 (1 standard drink = 0.6 oz pur e alcohol) occas PHQ-2 Answer Date Recorded PHQ-2 Total Score 0 07/22/2021 Sex and Gender Information Value Date Recorded Sex Assigned at Not on file Legal Sex Male 4:55 AM EDT Gender Identity Not on file Sexual Orientation Not on file Obstetrics History Last Filed Vital Signs Vital Sign Reading Time Taken Comments Blood Pressure 120/70 11/17/2021 11:11 AM EDT Pulse 76 11/17/2021 11:11 AM EDT Temperature 36.6 C (97.9 F) 11/17/2021 11:11 AM EDT Respiratory Rate 18 07/27/2018 2:36 PM EDT Oxygen Saturation 98% 11/17/2021 11:11 AM EDT Inhaled Oxygen Concentration - - Weight 103.9 kg (229 lb) 11/17/2021 11:11 AM EDT Height 177.8 cm (5' 10 ) 11/17/2021 11:11 AM EDT Body Mass Index 32.86 11/17/2021 11:11 AM EDT Plan of Treatment Health Maintenance Due Date Last Done Comments Cologuard 2002 FIT 2002 Sigmoidoscopy 2002 Virtual Colonography 2002 Zoster (1 of 2) 07/17/2007 RSV or 60+ (1 - Risk 60-74 years 1-dose series) 2017 Pneumococcal Vaccine 50+ (2 of 2 - PCV) 09/22/2019 09/21/2018 Hemoglobin A1c 01/22/2022 07/22/2021, 03/14, 05/20/2015, Additional history exists AAA Screening 2022 Kidney Health: eGFR 07/22/2022 07/22/2021, 03/31/2021, 06/16/2018, Additional history exists Lipids 07/22/2022 07/22/2021, 03/14, 06/16/2018, Additional history exists Annual Wellness Exam 11/17/2022 11/17/2021 Kidney Health: uACR 11/17/2022 11/17/2021 Diabetic Eye Exam 01/02/2023 01/02/2021 COVID-19 Vaccine ( season) 2023 Colon Cancer Screening 01/02/2024 Colonoscopy 01/02/2024 01/01/2014 DTaP/TDaP/Td (2 - Td or Tdap) 03/01/2024 03/01/2014 Influenza Vaccine (#1) 2024 04/23/2015 (Declin ed) Hepatitis C Screening Completed 09/13/2016 Hepatitis B Vaccine Aged Out No longe r eligible based on patient's age to complete this topic Meningococcal B Vaccine Aged Out No l onger eligible based on patient's age to complete this topic Goals Goal Patient Goal Type Associated Problems Recent Progress Patient-Stated? Author Blood Pressure < 140/90 Blood Pressure 120/70(2021 11:11 AM EDT) Deepak Campbell MD Maintain a healthy diet, exercise regularly and maintain an ideal body weight General No Erna Del Real CCMA BMI (Calculated) < 30 General 32.9(11/18/19 11:11 AM EDT) Deepak Campbell MD Stay Tobacco Free Lifestyle No Erna Del Real CCMA HEMOGLOBIN A1C < 7.0 Result Component 6.6( 2:39 PM EDT) No Deepak Kim MD Procedures Procedure Name Priority Date/Time Associated Diagnosis Comments MICROALBUMIN/CREATININ E RATIO URINE Routine 11/17/2021 12:27 PM EDT Type 2 diabetes mellitus without complication, without long-term current use of insulin (HCC) COMPREHENSIVE METABOLIC PANEL Routine 07/22/2021 2:39 PM EDT Type 2 diabetes mellitus without complication, without long-term current use of insulin (HCC) LIPID PANEL REFLEX Routine 07/22/2021 2: 39 PM EDT Hyperlipidemia associated with type 2 diabetes mellitus (HCC) HEMOGLOBIN A1C Routine 07/22/2021 2:39 PM EDT Type 2 diabetes mellitus without complication, without long-term current use of insulin (HCC) DIABETES EYE EXAM Routine 01/02/2021 HCV ANTIBODY SCREEN W/ REFLEX Routine 09/13/2016 8:55 AM EDT Need for hepatitis C screening test Routine general medical examination at a health care facility from Last 3 Months or Most Recently Relevant to Health Maintenance Results * MICROALBUMIN/CREATININE RATIO URINE (11/17/2021 12:27 PM EDT) Urine Microalb <12.0 mg/L 11/17/2021 1:38 PM EDT [facility] Urine Creatinine 387.0 mg/dL 09/06/20 22 1:38 PM EDT [facility] Ur Microalb/Creat 022 1:38 PM EDT [facility] Comment: Because the albumin level is below the level of detection in this urine specimen, the laboratory is unable to calculate a reliable albumin/creatinine ratio. Microalbuminuria is unlikely if the urine albumin concentration is less than 20- 30 mg/L in a random specimen. Urine URINE SPECIMEN COLLECTION / Unknown 11/17/2021 12:27 PM EDT 11/17/2021 12:27 PM EDT us Deepak Kim MD URINE ORDERABLES Final Result [facility], [facility] 1 [facility] , [facility], [place] [address] * (ABNORMAL) LIPID PANEL REFLEX (07/22/2021 2:39 PM EDT) Cholesterol 224(H) <200 mg/dL 07/22/2021 5:33 PM EDT [facility] Comment: < 200 Desirable 200 - 239 Borderline High >= 240 High Triglyceride 243(H) <150 mg/dL 07/22/2021 5:33 PM EDT [facility] Comment: < 150 Normal 150 - 199 Borderline High 200 - 499 High >= 500 Very High HDL 29(L) >=40 mg/dL 07/22/2021 5:33 PM EDT [facility] Comment: > 60 Optimal 40 - 60 Acceptable < 40 Low LDL Calculated 150(H) <100 mg/dL 07/22/2021 5:33 PM EDT [facility] Non-HDL-C Calculated 195(H) <=129 mg/dL 07/22/2021 5:33 PM EDT [facility] Comment: <130 Desirable 130-159 Above Desirable 160-189 Borderline High 190-219 High >= 220 Very High Fasting Specimen? No None 022 5:33 PM EDT [facility] Blood Venipuncture / Unknown 07/22/2021 2:39 PM EDT 07/22/2021 2:39 PM EDT Deepak Kim MD CHEMISTRY ORDERABLES Final Res ult Performing Organization Address [facility] [address] [facility] de Phone Number [facility], [facility] 1 [facility] , [address] [place] [id number] [facility] [address] [place], [place] [id number] * (ABNORMAL) HEMOGLOBIN A1C (07/22/2021 2:39 PM EDT) Pathologist [facility] [place] Hgb A1C 6.6(H) 4.2 - 5.6 % 07/22/2021 9:02 PM EDT [facility], [employer] Est. Avg Glucose 143 mg/dL 07/22/2021 9:02 PM EDT [facility] [employer] Blood Venipuncture / Unknown 07/22/2021 2:39 PM EDT 07/22/2021 2:39 PM EDT Narrative [facility] - 07/22/2021 9:02 PM EDT REFERENCE RANGE: Normal: 4.0-5.6% Pre-diabetes: 5.7-6.4% Provisional diagnosis of diabetes: >6.4% Hgb F>10% and anything which shortens red cell survival, such as hemolytic anemia, or unstable hemoglobin variants such as HbSS, HbSC, or HbCC, will lower the HbA1c value associated with a given level of glycemic control. Deepak Kim MD CHEMISTRY ORDERABLES Final Res ult Performing Organization Address [facility] [address]/[facility] Co de Phone Number [facility], [facility] 1 [facility] , [place] [address] * (ABNORMAL) COMPREHENSIVE METABOLIC PANEL (07/22/2021 2:39 PM EDT) Sodium 140 136 - 145 mmol/L 07/22/2021 5:33 PM EDT [facility] Potassium 4.1 3.5 - 5.0 mmol/L 07/22/2021 5:33 PM EDT [facility] Chloride 102 98 - 107 mmol/L 07/22/2021 5:33 PM EDT [facility] Total CO2 24 22 - 29 mmol/L 07/22/2021 5:33 PM EDT [facility] Anion Gap 14 7 - 16 mmol/L 07/22/2021 5:33 PM EDT [facility] Calcium 9.4 8.8 - 10.4 mg/dL 07/22/2021 5:33 PM EDT [facility] Glucose Lvl 82 82 - 100 mg/dL 07/22/2021 5:33 PM EDT [facility] BUN 14 8 - 23 mg/dL 07/22/2021 5:33 PM EDT [facility] Creatinine 1.37(H) 0.67 - 1.30 mg/dL 07/22/2021 5:33 PM EDT [facility] Albumin 4.5 3.2 - 4.6 gm/dL 07/22/2021 5:33 PM EDT [facility] Total Protein 7.6 6.4 - 8.3 gm/dL 07/22/2021 5:33 PM EDT [facility] Bili Total 0.5 0.1 - 1.4 mg/dL 07/22/2021 5:33 PM EDT [facility] ALT 34 <=41 U/L 07/22/2021 5:33 PM EDT [facility] AST 22 <=40 U/L 07/22/2021 5:33 PM EDT [facility] Alk Phos 69 40 - 129 U/L 07/22/2021 5:33 PM EDT [facility] eGFR (CKD-EPIcr 2020) 58(L) >=60 mL/min/1.7 3 m2 07/22/2021 5:33 PM EDT [facility] Comment:Estimated GFR was ca lculated using the CKD-EPIcr (2020) equation refit without race. The equation is recommended by the National Kidney Foundation - [employer] Nephrology Task Force. Blood Venipuncture / Unknown 07/22/2021 2:39 PM EDT 07/22/2021 2:39 PM EDT us Deepak Kim MD CHEMISTRY ORDERABLES Final Res ult [facility] [address] [facility], [place] [address] [facility] [address] [place] [id number] * DIABETES EYE EXAM (01/02/2021) Left Diabetic Retinopathy Not Present Present/Not Present SEP OFFICE Right Diabetic Retinopathy Not Present Present/Not Present SEP OFFICE Impressions SEP OFFICE - 01/02/2021 See scanned report us Historical Provider HEALTH MAINTENANCE Final Res ult Performing Organization Address City/[facility] [address]/ZIP Co de Phone Number SEP OFFICE * HEPATITIS C ANTIBODY - SCREENING (09/13/2016 8:55 AM EDT) Hep C Ab Negative Negative [facility] Blood specimen (specimen) 09/13/2016 8:55 AM EDT 09/13/2016 10:50 AM EDT Param Mcmillan MD HEMATOLOGY ORDERABLES Fin al Result Performing Organization Address [facility] [address]/[facility] Co de Phone Number [facility] [address] [place] [address] from Last 3 Months or Most Recently Relevant to Health Maintenance Insurance [facility] [id number] [facility] [place] [id number] [place] [id number] [place] [id number] [address] [place] [id number] Care Teams Pie Topper Relationship Specialty [place] [address] [place] [address] Dermatology 06/02/15 [place] [address] [place] [address] Physician Internal Medicine-Gastroenterology 12/23/15
== END 2024-09-13 23:59 | disposition home or self-care (01) ==
LOC: LAB.DROPOF 09-17 10:40
PROVIDERS: PCP Family Medicine; Visit Provider Family Medicine
DX: E78.5 Hyperlipidemia, unspecified (principal); E11.9 Type 2 diabetes mellitus without complications; I10 Essential (primary) hypertension
CPT/HCPCS: 80053; 80061; 83036

== ENCOUNTER 2024-12-13 13:56 | Outpatient (CLI) | payer MEDICARE, MEDICAID, SELFPAY ==
--- OUTSIDE RECORDS SUMMARY | 2024-12-13 13:59 | XMS_ITS | Clinical Summary ---
Author Organization [facility] Address [address] [place] [address] Phone Care Team Providers Care Civil Engineer'S Aide Name Role Phone Kahlil Stovall MD Unavailable [phone] Dony Willett MD Unavailable [phone] Allergies Active Allergy Reactions Criticality Noted Date Comments Atorvastatin Other (See Comments) 10/21/2016 Dizziness Metformin Rash 11/17/2021 rash, significant with blistering Simvastatin 10/19/2016 Lightheadedness Medications aspirin 81 mg tabletIndications: myocardial infarction prevention Take 81 mg by mouth daily. Indications: treatment to prevent a heart attack 04/17/19 12 Active fluticasone propionate (FLONASE) 50 mcg/actuation Nasl Fontanelle, Suspension 1 Fontanelle by Nasal route daily. 1 Bottle 5 [...] Date Smoking Tobacco: Every Day Cigarettes 0.5 28.8 Started: 03/14/1996 Smokeless Tobacco: Never Tobacco Cessation:Ready [...] on file Sexual Orientation Not on file Last Filed Vital Signs Vital Sign Reading [...] Health Maintenance Due Date Last Done Comments Annual Wellness Exam 1960 Cologuard 2002 FIT 2002 Sigmoidoscopy 2002 Virtual Colonography 2002 Zoster (1 of 2) 07/17/2007 RSV or 60+ (1 - Risk 60-74 years 1-dose series) 2017 Pneumococcal Vaccine 50+ (2 of 2 - PCV) 09/22/2019 09/21/2018 Hemoglobin A1c 01/22/2022 07/22/2021, 03/14, 05/20/2015, Additional history exists Kidney Health: eGFR 07/22/2022 07/22/2021, 03/31/2021, 06/16/2018, Additional history exists Lipids 07/22/2022 07/22/2021, 03/14, 06/16/2018, Additional history exists Kidney Health: uACR 11/17/2022 11/17/2021 Diabetic Eye Exam 01/02/2023 01/02/2021 Colon Cancer Screening 01/02/2024 Colonoscopy 01/02/2024 01/01/2014 DTaP/TDaP/Td (2 - Td or Tdap) 03/01/2024 03/01/2014 COVID-19 Vaccine ( season) 2024 Influenza Vaccine (#1) 2024 04/23/2015 (Declin ed) [...] 140/90 Blood Pressure 120/70(2021 11:11 AM EDT) No Deepak Kim MD Maintain a healthy diet, exercise regularly [...] without long-term current use of insulin (HCC) HM DIABETES EYE EXAM Routine 01/02/2021 HCV ANTIBODY SCREEN W/ REFLEX Routine 09/13/2016 8:55 AM EDT Need for hepatitis C screening test Routine general medical examination at a health care facility from Last 3 Months or Most Recently Relevant to Health Maintenance Results * MICROALBUMIN/CREATININE RATIO URINE (11/17/2021 12:27 PM EDT) Urine Microalb <12.0 mg/L 11/17/2021 1:38 PM EDT [facility] Urine Creatinine 387.0 mg/dL 11/18/19 1:38 PM EDT [facility] Ur Microalb/Creat 022 1:38 PM EDT [facility] [employer] [facility] Comment: Because the albumin level is below the level of detection in this urine specimen, the laboratory is unable to calculate a reliable albumin/creatinine ratio. Microalbuminuria is unlikely if the urine albumin concentration is less than 20- 30 mg/L in a random specimen. Urine URINE SPECIMEN COLLECTION / Unknown 11/17/2021 12:27 PM EDT 11/17/2021 12:27 PM EDT Deepak Kim MD URINE ORDERABLES Final Result [facility] [facility] 1 [facility], [facility] [place] [address] * (ABNORMAL) LIPID PANEL REFLEX (07/22/2021 2:39 PM EDT) Cholesterol 224(H) <200 mg/dL 07/22/2021 5:33 PM EDT [facility] [employer] [facility] Comment: < 200 Desirable 200 - 239 Borderline High >= 240 High Triglyceride 243(H) <150 mg/dL 07/22/2021 5:33 PM EDT [facility] [employer] [facility] Comment: < 150 Normal 150 - 199 Borderline High 200 - 499 High >= 500 Very High HDL 29(L) >=40 mg/dL 07/22/2021 5:33 PM EDT [facility] [employer] [facility] Comment: > 60 Optimal 40 - 60 Acceptable < 40 Low LDL Calculated 150(H) <100 mg/dL 07/22/2021 5:33 PM EDT [facility] [employer] [facility] Non-HDL-C Calculated 195(H) <=129 mg/dL 07/22/2021 5:33 PM EDT [facility] [employer], [facility] Comment: <130 Desirable 130-159 Above Desirable 160-189 Borderline High 190-219 High >= 220 Very High Fasting Specimen? No None 022 5:33 PM EDT [facility] Blood Venipuncture / Unknown 07/22/2021 2:39 PM EDT 07/22/2021 2:39 PM EDT Deepak Kim MD CHEMISTRY ORDERABLES Final Res ult Performing Organization Address [facility] Co de Phone Number [facility], [address] , [address] [place] [id number] [facility] [address] [place] [address] * (ABNORMAL) HEMOGLOBIN A1C (07/22/2021 2:39 PM EDT) Hgb A1C 6.6(H) 4.2 - 5.6 % 07/22/2021 9:02 PM EDT [facility] Est. Avg Glucose 143 mg/dL 07/22/2021 9:02 PM EDT [facility], [facility] Blood Venipuncture / Unknown 07/22/2021 2:39 PM EDT 07/22/2021 2:39 PM EDT Narrative [facility], [facility] - 07/22/2021 9:02 PM EDT REFERENCE RANGE: Normal: 4.0-5.6% Pre-diabetes: 5.7-6.4% Provisional diagnosis of diabetes: >6.4% Hgb F>10% and anything which shortens red cell survival, such as hemolytic anemia, or unstable hemoglobin variants such as HbSS, HbSC, or HbCC, will lower the HbA1c value associated with a given level of glycemic control. Deepak Kim MD CHEMISTRY ORDERABLES Final Res ult Performing Organization Address [facility] Co de Phone Number [facility], [address] , [place] [address] * (ABNORMAL) COMPREHENSIVE METABOLIC PANEL (07/22/2021 2:39 PM EDT) Sodium 140 136 - 145 mmol/L 07/22/2021 5:33 PM EDT [facility] Potassium 4.1 3.5 - 5.0 mmol/L 07/22/2021 5:33 PM EDT [facility] Chloride 102 98 - 107 mmol/L 07/22/2021 5:33 PM EDT [facility] Total CO2 24 22 - 29 mmol/L 07/22/2021 5:33 PM EDT [facility], [facility] Anion Gap 14 7 - 16 mmol/L 07/22/2021 5:33 PM EDT [facility], [facility] Calcium 9.4 8.8 - 10.4 mg/dL 07/22/2021 5:33 PM EDT [facility], [facility] Glucose Lvl 82 82 - 100 mg/dL 07/22/2021 5:33 PM EDT [facility], [facility] BUN 14 8 - 23 mg/dL 07/22/2021 5:33 PM EDT [facility], [facility] Creatinine 1.37(H) 0.67 - 1.30 mg/dL 07/22/2021 5:33 PM EDT [facility], [facility] Albumin 4.5 3.2 - 4.6 gm/dL 07/22/2021 5:33 PM EDT [facility], [facility] Total Protein 7.6 6.4 - 8.3 gm/dL 07/22/2021 5:33 PM EDT [facility], [facility] Bili Total 0.5 0.1 - 1.4 mg/dL 07/22/2021 5:33 PM EDT [facility], [facility] ALT 34 <=41 U/L 07/22/2021 5:33 PM EDT [facility], [facility] AST 22 <=40 U/L 07/22/2021 5:33 PM EDT [facility], [facility] Alk Phos 69 40 - 129 U/L 07/22/2021 5:33 PM EDT [facility], [facility] eGFR (CKD-EPIcr 2020) 58(L) >=60 mL/min/1.7 3 m2 07/22/2021 5:33 PM EDT [facility] Comment:Estimated GFR was ca lculated using the CKD-EPIcr (2020) equation refit without race. The equation is recommended by the National Kidney Foundation - [place] Society of Nephrology Task Force. Blood Venipuncture / Unknown 07/22/2021 2:39 PM EDT 07/22/2021 2:39 PM EDT us Deepak Kim MD CHEMISTRY ORDERABLES Final Res ult [facility], [facility] 1 [facility] [address] [facility] [address] [place] [address] * DIABETES EYE EXAM (01/02/2021) Left Diabetic Retinopathy Not Present Present/Not Present SEP OFFICE Right Diabetic Retinopathy Not Present Present/Not Present SEP OFFICE Impressions SEP OFFICE - 01/02/2021 See scanned report us Historical Provider HEALTH MAINTENANCE Final Res ult Performing Organization Address City/[facility]/ZIP Co de Phone Number SEP OFFICE * HEPATITIS C ANTIBODY - SCREENING (09/13/2016 8:55 AM EDT) Hep C Ab Negative Negative [facility] Blood specimen (specimen) 09/13/2016 8:55 AM EDT 09/13/2016 10:50 AM EDT Param Mcmillan MD HEMATOLOGY ORDERABLES Fin al Result Performing Organization Address [facility] Co de Phone Number [facility] [address] [place] [address] from Last 3 Months or Most Recently Relevant to Health Maintenance Insurance [place] [id number] MDR [facility] [place] [id number] [facility] Care Teams Civil Engineer'S Aide Relationship Specialty [place] [address] [facility] [place] [address] Dermatology 06/02/15 [place] [address] [place] [address] Physician Internal Medicine-Gastroenterology 12/23/15
--- OUTSIDE RECORDS SUMMARY | 2024-12-13 13:59 | XMS_ITS | Clinical Summary ---
Author Organization Healthcare Address [address] [place] [address] Care Team Providers Care Plastic Tubing Insulation Supervisor Name Role Phone Unavailable Primary Care Provider [...] (2 of 2 - PCV) 09/22/2019 09/21/2018 [id number] Vaccine (1 - 20 24-25 season) 2024 [facility]-Influenza Vaccine (#1) 2024 [facility]-RSV Vaccine: 60+ [...]
--- OUTSIDE RECORDS SUMMARY | 2024-12-13 13:59 | XMS_ITS | Encounter Summary ---
Author Organization [place] [address] Care Team Providers Care Field Agent Name Role Phone Param Mcmillan MD Primary Care Provider [phone] Kahlil Stovall MD Unavailable [phone] Dony Willett MD Unavailable Encounter Details Date Type Department Care Team (Late st Contact Info) Description 01/26/2016 Orders Only SEP Gastro [facility] [address] [facility] [address] [place] [address] Dony Willett MD [address] [place] [address] Social History Tobacco Use Types [...] PM EST) 01/26/2016 1:00 PM EST Impressions [facility] - 01/26/2016 1:23 PM EST Normal esophagus. Erythema in the duodenal bulb compatible with duodenitis. Hiatal Hernia. Plan: Follow-up as needed This section is an excerpt of the full report. us Dony Willett MD GI PROCEDURE ORDERABLES Fin al Result [facility] [address] [place] [address] documented in this encounter Visit Diagnoses Not on filedocumented in this encounter Care Teams Field Agent Relationship Specialty Start Date End Date Param Mcmillan MD [address] [facility] [address] [place] [id number] PCP - General Family Medicine 04/23/15 07/06/22 [place] [address] [address] [facility] [place] [address] Dermatology 06/02/15 [place] [address] [address] [facility] [place] [address] Physician Internal Medicine-Gastroenterology 12/23/15 documented as of this encounter
--- NOTE | 2024-12-13 14:30 | CA_ITS ---
APPROVED REPORT EXAM: Comprehensive 2D, Doppler, and color-flow Echocardiogram Retail Salesman: Era Osorio CRT Ht: 5 ft 9 in Wt: 230lbs BSA: 2.19 BP: 122/78 mmHg Indications: Congestive Heart Failure, COPD, Shortness of Breath, Diabetes, Hyperlipidemia, Hypertension/HDD, exsmoker 2D Dimensions LA Volume 32.50 mL LA Volume Index 14.40 mL/m2 (M/F) 16-34 M-Mode Dimensions RVDd 3.25 cm (0.9-2.6) LA Diam 3.63 cm (1.9-4.0) LVDd 4.56 cm (3.5-5.7) LVDs 3.17 cm (3.5-5.7) IVSd 1.59 cm (0.6-1.1) PWd 0.72 cm (0.6-1.1) EF (Teich) 58.10% FS 30.50% EDV (Teich) 95.40 mL TAPSE 2.69 (<1.7) ESV (Teich) 40.00 mL LV Diastology E Decel Time 150 (160-240 msec) E/A Ratio 0.70 MED A' 11.70 cm/s LAT A' 8.60 cm/s Aortic Valve AO Peak GR. 6.50 mmHg Mitral Valve MV E Max Abdiaziz. 57.0 (40-130 cm/s) MV A Velocity 82.0 (40-130 cm/s) E/A Ratio 0.70 MV PHT 44.0 ms Tricuspid Valve TR P. Velocity 258.00 cm/s RAP Estimate 10.00 mmHg RVSP 36.60 mmHg Left Ventricle The left ventricle is normal size. Left ventricular systolic function is normal. The left ventricular ejection fraction is within the normal range. There is increased left ventricular wall thickness. There is normal LV segmental wall motion. The left ventricular diastolic function is normal. LVEF is 55% Right Ventricle The right ventricle is mildly dilated. The right ventricular systolic function is normal. Atria The left atrium is mildly dilated. The right atrium is mildly dilated. There is no color Doppler evidence of interatrial shunt. Aortic Valve The aortic valve is mildly thickened. There is no hemodynamically significant aortic valvular stenosis. Trace aortic regurgitation is present. Mitral Valve The mitral valve is normal in structure. No evidence of mitral valve stenosis. Trace mitral regurgitation is present. Tricuspid Valve The tricuspid valve leaflets are thin and pliable. Trace tricuspid regurgitation. There is insufficient TR jet to estimate RVSP. Pulmonic Valve The pulmonary valve is grossly normal in structure. Trace pulmonic valve regurgitation is present. Great Vessels The aortic root is normal in size. IVC is normal in size and collapses >50% with inspiration. Pericardium There is no pericardial effusion. Other Information Study Quality: Fair Conclusion Normal biventricular systolic function. Mild RV dilation. Mild biatrial dilation. No significant valvular stenosis or regurgitation. Electronically signed by : Brenna Neal MD 12/15/2024 23:28:26
== END 2024-12-13 23:59 | disposition home or self-care (01) ==
LOC: RT 13:57
PROVIDERS: PCP Family Medicine; Visit Provider Family Medicine
DX: R06.9 Unspecified abnormalities of breathing (principal); I11.0 Hypertensive heart disease with heart failure; I50.9 Heart failure, unspecified; J44.9 Chronic obstructive pulmonary disease, unspecified; E11.9 Type 2 diabetes mellitus without complications; E78.5 Hyperlipidemia, unspecified; Z87.891 Personal history of nicotine dependence
CPT/HCPCS: 93306

== ENCOUNTER 2025-01-03 14:40 | Outpatient (CLI) | payer MEDICARE, MEDICAID, SELFPAY ==
--- OUTSIDE RECORDS SUMMARY | 2024-06-16 17:30 | XMS_ITS ---
Author Organization [facility] Address [address] [place] [address] Care Team Providers Care Mobile Home Lot Utility Worker Name Role Phone Melvin Israel Primary Care Provider Melvin Israel Unavailable Unavailable Migration, Provider Unavailable Unavailable Allergies Allergen (clinical drug ingredient) Drug/Non Drug Allergy documented on EMR Reaction Allergy Type Onset Date Status Information temporarily unavailable metFORMIN rash Drug Allergy Active REASON FOR VISIT [facility] To [facility] Conversion Encounter Medications Medication SIG (Take, [...] Active Encounters Encounter Location Date Provider Diagnosis [facility] [address] [place] [address] 06/16/2024 Provider Migration Primary insomnia F51.01 Assessments [...] Notes * Thaddeus JULIOOB:07/1955 (69 yo M)Acc No.[id number]:06/16/2024 Patient: Vicky MAYELIN Thaddeus Sorin Provider: Renan saul Migration :1955 A ge:68 Y S ex:Male Date:06/16/2024 Address:[address] [place] [id number] Pcp:Melvin Israel Subjective: * Chief Complaints: * [...] Electronic signature of Prov ider Migration on 01/04/2025 at 09:38 AM EDT Sign off status: Pending * Provider: Renan saul Migration Date: 0 06/16/2024 Generated for Gio ojeda/Memo/Priscilla on: 1 09:38 AM EDT
[2025-01-03 19:52] LABS: Albumin Level 4.3 g/dl (3.5-5.0); Chloride 99 mmol/L (98-107); Potassium 4.6 mmoL/L (3.5-5.1); Sodium 135 mmol/L (136-145)
[2025-01-03 19:54] LABS: Alanine Aminotransferase 41 U/L (12-78); Aspartate Amino Transferase 32 U/L (17-59); Blood Urea Nitrogen 14 mg/dl (9-20); Creatinine,Serum 1.20 mg/dl (0.66-1.25); Estimated Glomerular Filt Rate 60 ml/min (>60); GFR (African American) 73 ML/MIN (>60)
[2025-01-03 19:55] LABS: Albumin/Globulin Ratio 1.3 (1.1-1.8); Alkaline Phosphatase 60 U/L (38-126); Anion Gap 12.6 mEq/L (5-15); Bilirubin,Total 0.5 mg/dl (0.2-1.3); Calcium 9.1 mg/dl (8.4-10.2); Carbon Dioxide 28 mmol/L (22.0-30.0); Cholesterol 248 mg/dl (140-200); Globulin 3.3 g/dL (1.3-3.2); Glucose 116 mg/dl (74-100); HDL Cholesterol 37 mg/dl (40-60); Total Protein,Serum 7.6 g/dl (6.3-8.2); Triglycerides 191 mg/dl (30-150)
[2025-01-03 20:24] LABS: Hemoglobin A1C 7.1 % (4.0-6.0)
--- OUTSIDE RECORDS SUMMARY | 2025-01-04 09:39 | XMS_ITS | Clinical Summary ---
Author Organization [facility] Address [address] [place] [address] Phone Care Team Providers Care Hot Tamale Man Name Role Phone Kahlil Stovall MD Unavailable [phone] Dony Willett MD Unavailable [phone] Allergies Active Allergy Reactions Criticality Noted Date Comments Atorvastatin Other (See Comments) 10/21/2016 Dizziness Metformin Rash 11/17/2021 rash, significant with blistering Simvastatin 10/19/2016 Lightheadedness Medications aspirin 81 mg tabletIndications: myocardial infarction prevention Take 81 mg by mouth daily. Indications: treatment to prevent a heart attack 04/17/19 12 Active fluticasone propionate (FLONASE) 50 mcg/actuation Nasl Emery, Suspension 1 Emery by Nasal route daily. 1 Bottle 5 [...] FIT 2002 Sigmoidoscopy 2002 Virtual Colonography 2002 RSV or 60+ (1 - Risk 50-74 years 1-dose series) 07/17/2007 Zoster (1 of 2) 07/17/2007 Pneumococcal Vaccine 50+ (2 of 2 - [...] Procedure Name Priority Date/Time Associated Diagnosis Comments ALBUMIN/CREATININE RATIO, RANDOM URINE Routine 11/17/2021 12:27 PM EDT Type [...] RATIO URINE (11/17/2021 12:27 PM EDT) Urine Albumin <12.0 mg/L 11/17/2021 1:38 PM EDT [facility] [employer] Urine Creatinine 387.0 mg/dL 11/18/19 1:38 PM EDT [facility] Ur Albumin/Creat Ratio 11/17/2021 1:38 PM EDT [facility] Comment: Because the albumin level is [...] MD URINE ORDERABLES Final Result [facility] [address] [facility] , [place] [address] * (ABNORMAL) LIPID PANEL REFLEX (07/22/2021 2:39 PM EDT) Cholesterol 224(H) <200 mg/dL 07/22/2021 5:33 PM EDT [facility] Comment: < 200 Desirable 200 - 239 Borderline High >= 240 High Triglyceride 243(H) <150 mg/dL 07/22/2021 5:33 PM EDT [facility] Comment: < 150 Normal 150 - 199 Borderline High 200 - 499 High >= 500 Very High HDL 29(L) >=40 mg/dL 07/22/2021 5:33 PM EDT [facility] Comment: > 60 Optimal 40 - 60 Acceptable < 40 Low LDL Calculated 150(H) <100 mg/dL 07/22/2021 5:33 PM EDT [facility] Non-HDL-C Calculated 195(H) <=129 mg/dL 07/22/2021 5:33 PM EDT [facility] Comment: <130 Desirable 130-159 Above Desirable 160-189 Borderline High 190-219 High >= 220 Very High Fasting Specimen? No None 022 5:33 PM EDT [facility] Blood Venipuncture / Unknown 07/22/2021 2:39 PM EDT 07/22/2021 2:39 PM EDT Deepak Kim MD CHEMISTRY ORDERABLES Final Res ult Performing Organization Address [facility] Co de Phone Number [facility], [address] , [place] [address] [facility] [address] [place] [address] * (ABNORMAL) HEMOGLOBIN A1C (07/22/2021 2:39 PM EDT) Hgb A1C 6.6(H) 4.2 - 5.6 % 07/22/2021 9:02 PM EDT [facility] Est. Avg Glucose 143 mg/dL 07/22/2021 9:02 PM EDT [facility] Blood Venipuncture / Unknown 07/22/2021 2:39 PM EDT 07/22/2021 2:39 PM EDT Narrative [facility], [facility] - 07/22/2021 9:02 PM EDT REFERENCE [...] Final Res ult Performing Organization Address [facility] Co de Phone Number [facility], [address] , [address] [place] [id number] * (ABNORMAL) COMPREHENSIVE METABOLIC PANEL (07/22/2021 2:39 PM EDT) Sodium 140 136 - 145 mmol/L 07/22/2021 5:33 PM EDT [facility] Potassium 4.1 3.5 - 5.0 mmol/L 07/22/2021 5:33 PM EDT [facility] Chloride 102 98 - 107 mmol/L 07/22/2021 5:33 PM EDT [facility] Total CO2 24 22 - 29 mmol/L 07/22/2021 5:33 PM EDT [facility] Anion Gap 14 7 - 16 mmol/L 07/22/2021 5:33 PM EDT [facility] Calcium 9.4 8.8 - 10.4 mg/dL 07/22/2021 5:33 PM EDT [facility] Glucose Lvl 82 82 - 100 mg/dL 07/22/2021 5:33 PM EDT [facility] BUN 14 8 - 23 mg/dL 07/22/2021 5:33 PM EDT [facility] Creatinine 1.37(H) 0.67 - 1.30 mg/dL 07/22/2021 5:33 PM EDT [facility] Albumin 4.5 3.2 - 4.6 gm/dL 07/22/2021 5:33 PM EDT [facility] Total Protein 7.6 6.4 - 8.3 gm/dL 07/22/2021 5:33 PM EDT [facility] Bili Total 0.5 0.1 - 1.4 mg/dL 07/22/2021 5:33 PM EDT [facility] ALT 34 <=41 U/L 07/22/2021 5:33 PM EDT [facility] AST 22 <=40 U/L 07/22/2021 5:33 PM EDT [facility] Alk Phos 69 40 - 129 U/L 07/22/2021 5:33 PM EDT [facility] eGFR (CKD-EPIcr 2020) 58(L) >=60 mL/min/1.7 3 m2 07/22/2021 5:33 PM EDT [facility] Comment:Estimated GFR was ca lculated using the CKD-EPIcr (2020) equation refit without race. The equation is recommended by the National Kidney Foundation - [place] Society of Nephrology Task Force. Blood Venipuncture / Unknown 07/22/2021 2:39 PM EDT 07/22/2021 2:39 PM EDT us Deepak Kim MD CHEMISTRY ORDERABLES Final Res ult [facility], [facility] 1 [facility], [place] [address] [facility] [address] [place] [address] * HM DIABETES EYE EXAM (01/02/2021) Left Diabetic Retinopathy Not Present Present/Not Present SEP OFFICE Right Diabetic Retinopathy Not Present Present/Not Present SEP OFFICE Impressions SEP OFFICE - 01/02/2021 See scanned report us Historical Provider HEALTH MAINTENANCE Final Res ult Performing Organization Address [facility] Co de Phone Number SEP OFFICE * HEPATITIS C ANTIBODY - SCREENING (09/13/2016 8:55 AM EDT) Hep C Ab Negative Negative [facility] Blood specimen (specimen) 09/13/2016 8:55 AM EDT 09/13/2016 10:50 AM EDT Param Mcmillan MD HEMATOLOGY ORDERABLES Fin al Result Performing Organization Address [facility] Co de Phone Number [facility] [address] [place] [address] from Last 3 Months or Most Recently Relevant to Health Maintenance [place] [id number] MDR [facility] [facility] [place] [id number] MDR [facility] [id number] Care Teams Hot Tamale Man Relationship Specialty [place] [address] [place] [address] Dermatology 06/02/15 [place] [address] [place] [address] Physician Internal Medicine-Gastroenterology 12/23/15
--- OUTSIDE RECORDS SUMMARY | 2025-01-04 09:39 | XMS_ITS | Clinical Summary ---
Author Organization Healthcare Address [address] [place] [address] Care Team Providers Care Gas Station Attendant Name Role Phone Unavailable Primary Care Provider [...] Date Last Done Comments [facility]Y-Depression Screening 1957 [facility]-/Child/Adol SDOH Screenings 1957 [facility]Y- SDOH Screenings 07/17/1975 UKY-Adult SDOH Screenings 07/17/1975 [facility]Y-DTaP,Tdap,and Td Vaccine s (1 - Tdap) 1976 CT Colonography 2002 Colonoscopy 2002 FIT-DNA 2002 FIT 2002 FOBT 2002 Sigmoidoscopy 2002 [facility]Y-Colorectal Cancer Screening 2002 [facility]Y-Zoster Vaccines (1 of 2) 07/17/2007 UKY-Pneumococcal Vaccine: 50 + Years (2 of 2 - PCV) 09/22/2019 09/21/2018 [id number] Vaccine (1 - 20 24-25 season) 2024 [...]
--- OUTSIDE RECORDS SUMMARY | 2025-01-04 09:39 | XMS_ITS | Patient Health Record ---
Author Organization [facility] Address [address] [facility] [address] [place] [address] Care Team Providers Care Vp Hr Diversity Name Role Phone Melvin Israel Primary Care Provider Melvin Israel Unavailable Unavailable Migration, Provider Unavailable Unavailable Allergies Allergen (clinical drug ingredient) Drug/Non Drug Allergy documented on EMR Reaction Allergy Type Onset Date Status Information temporarily unavailable metFORMIN rash Drug Allergy Active Reason For [...] Dutasteride 0.5 MG TAKE 1 CAPSULE BY [facility] ONCE DAILY; Duration: 90 Active Amitriptyline HCl [...] TH DAILY (WITH BREAKFAST).; Duration: 90 Active Immunizations Vaccine Route Administration Date Status Comme nts Boostrix IM Intramuscular 10/18/2022 Administered Pneumovax 23 Unknown 09/21/2018 Administered Prevnar PCV-20 (Pneumococcal conjugate 20) IM Intramuscular 10/18/2022 Administered Social History Tobacco Use: Social History Observation Description Date Details (start date - stop date) Current Smoker NA - NA Smoking: Question Answer Notes Are you a: current smoker Problems Problem Type SNOMED Code ICD Code Onset Dates Problem Status W/U Status Risk Notes Problem Information temporarily unavailable Type 2 diabetes mellitus with other specified complication (E11.69) Active confirmed Problem Information temporarily unavailable Primary insomnia (F51.01) Active confirmed Problem Information temporarily unavailable Personal history of nicotine dependence (Z87.891) Active confirmed Problem Information temporarily unavailable Diabetes mellitus type 2, noninsulin dependent (E11.9) Active confirmed Problem Information temporarily unavailable Hyperlipemia, idiopathic familial (E78.5) Active confirmed Problem Information temporarily unavailable Obesity, unspecified (E66.9) Active confirmed Problem Information temporarily unavailable History of melanoma (Z85.820) Active confirmed Problem Information temporarily unavailable Primary hypertension (I10) Active confirmed Problem Information temporarily unavailable Sleep apnea in adult (G47.30) Active confirmed Encounters Encounter Location Date Provider Diagnosis [facility] [address] [place] [address] 06/16/2024 Provider Migration Primary insomnia F51.01 Assessments [...] End Date [employer] MEDICARE DUAL [address] [address] [place] [address] [phone] [id number] Thaddeus Leon Self - patient is the insured [employer] [place] [address] [address] [place] [address] [phone] [id number] Thaddeus Leon Self - patient is the insured Medical (General) History Medical History History ICD Code hypercholestrolemia type II diabetes Esophageal reflux Negative low dose CT scan 06/03 Surgical History Surgery Date(Month/Year) right rotator cuff tear repair spinal tap 3-4 years ago
--- OUTSIDE RECORDS SUMMARY | 2025-01-04 09:39 | XMS_ITS | Encounter Summary ---
Author Organization [place] [address] Care Team Providers Care Shredder Tender Name Role Phone Param Mcmillan MD Primary Care Provider [phone] Kahlil Stovall MD Unavailable Dony Willett MD Unavailable Encounter Details Date Type Department Care Team (Late st Contact Info) Description 01/26/2016 Orders Only SEP Gastro [facility] [address] [facility] [address] [place] [address] Dony Willett MD [address] [place] [address] Social History Tobacco Use Types [...] PM EST) 01/26/2016 1:00 PM EST Impressions [facility] - 01/26/2016 1:23 PM EST Normal esophagus. Erythema in the duodenal bulb compatible with duodenitis. Hiatal Hernia. Plan: Follow-up as needed This section is an excerpt of the full report. us Dony Willett MD GI PROCEDURE ORDERABLES Fin al Result [facility] 1 [place] [address] documented in this encounter Visit Diagnoses Not on filedocumented in this encounter Care Teams Shredder Tender Relationship Specialty Start Date End Date Param Mcmillan MD [address] [facility] [address] [place] [id number] PCP - General Family Medicine 04/23/15 07/06/22 [place] [address] [facility] [place] [address] Dermatology 06/02/15 [place] [address] [facility] [place] [address] Physician Internal Medicine-Gastroenterology 12/23/15 documented as of this encounter
== END 2025-01-03 23:59 ==
LOC: LAB.DROPOF 01-04 09:36
PROVIDERS: PCP Family Medicine; Visit Provider Family Medicine
DX: E11.9 Type 2 diabetes mellitus without complications (principal)
CPT/HCPCS: 80053; 80061; 82043; 82570; 83036

== ENCOUNTER 2025-01-07 16:20 | Outpatient (CLI) | payer MEDICARE, MEDICAID, SELFPAY ==
--- OUTSIDE RECORDS SUMMARY | 2024-06-16 17:30 | XMS_ITS ---
Author Organization [facility] Address [address] [place] [address] Care Team Providers Care Defensive Secondary Coach Name Role Phone Melvin Israel Primary Care Provider Melvin Israel Unavailable Unavailable Migration, Provider Unavailable Unavailable Allergies Allergen (clinical drug ingredient) Drug/Non Drug Allergy documented on EMR Reaction Allergy Type Onset Date Status metformin metFORMIN rash Drug Allergy Active REASON FOR VISIT [facility] To [facility] Conversion Encounter Medications Medication SIG (Take, Route, [...] Active Encounters Encounter Location Date Provider Diagnosis [facility] [address] [place] [address] 06/16/2024 Provider Migration Primary insomnia F51.01 Assessments [...] Notes * Thaddeus JULIOOB:07/1955 (69 yo M)Acc No.[id number]:06/16/2024 Patient: Vicky Thaddeus DICK Provider: Renan saul Migration :1955 A ge:68 Y S ex:Male Date:06/16/2024 Address:[address] [place] [id number] Pcp:Melvin Israel Subjective: * Chief Complaints: * [...] Electronic signature of Prov ider Migration on 01/07/2025 at 04:22 PM EDT Sign off status: Pending * Provider: Renan saul Migration Date: 0 06/16/2024 Generated for Gio ojeda/Memo/Priscilla on: 1 04:22 PM EDT
--- OUTSIDE RECORDS SUMMARY | 2025-01-07 16:23 | XMS_ITS | Encounter Summary ---
Author Organization [place] [address] Care Team Providers Care Transport Operations Inspector Name Role Phone Param Mcmillan MD Primary Care Provider [phone] Kahlil Stovall MD Unavailable Dony Willett MD Unavailable Encounter Details Date Type Department Care Team (Late st Contact Info) Description 01/26/2016 Orders Only SEP Gastro [facility] [address] [facility] [address] [place] [address] Dony Willett MD [address] [place] [address] Social History Tobacco Use Types [...] PM EST) 01/26/2016 1:00 PM EST Impressions [facility] - 01/26/2016 1:23 PM EST Normal esophagus. Erythema in the duodenal bulb compatible with duodenitis. Hiatal Hernia. Plan: Follow-up as needed This section is an excerpt of the full report. us Dony Willett MD GI PROCEDURE ORDERABLES Fin al Result [facility] 1 [place] [address] documented in this encounter Visit Diagnoses Not on filedocumented in this encounter Care Teams Transport Operations Inspector Relationship Specialty Start Date End Date Param Mcmillan MD [address] [facility] [address] [place] [phone] PCP - General Family Medicine 04/23/15 07/06/22 [place] [address] [facility] [place] [address] Dermatology 06/02/15 [place] [address] [facility] [place] [address] Physician Internal Medicine-Gastroenterology 12/23/15 documented as of this encounter
--- OUTSIDE RECORDS SUMMARY | 2025-01-07 16:23 | XMS_ITS | Clinical Summary ---
Author Organization [facility] Address [address] [place] [address] Phone Care Team Providers Care Financial Developer Name Role Phone Kahlil Stovall MD Unavailable [phone] Dony Willett MD Unavailable [phone] Allergies Active Allergy Reactions Criticality Noted Date Comments Atorvastatin Other (See Comments) 10/21/2016 Dizziness Metformin Rash 11/17/2021 rash, significant with blistering Simvastatin 10/19/2016 Lightheadedness Medications aspirin 81 mg tabletIndications: myocardial infarction prevention Take 81 mg by mouth daily. Indications: treatment to prevent a heart attack 04/17/19 12 Active fluticasone propionate (FLONASE) 50 mcg/actuation Nasl Preston, Suspension 1 Preston by Nasal route daily. 1 Bottle 5 [...] mg/L 11/17/2021 1:38 PM EDT [facility] [employer] Urine Creatinine 387.0 mg/dL 11/18/19 1:38 PM EDT [facility] Ur Albumin/Creat Ratio 11/17/2021 1:38 PM EDT [facility], [facility] Comment: Because the albumin level is [...] MD URINE ORDERABLES Final Result [facility] [address] [facility] , [place] [address] * (ABNORMAL) LIPID PANEL REFLEX (07/22/2021 2:39 PM EDT) Cholesterol 224(H) <200 mg/dL 07/22/2021 5:33 PM EDT [facility] Comment: < 200 Desirable 200 - 239 Borderline High >= 240 High Triglyceride 243(H) <150 mg/dL 07/22/2021 5:33 PM EDT [facility] Comment: < 150 Normal 150 - 199 Borderline High 200 - 499 High >= 500 Very High HDL 29(L) >=40 mg/dL 07/22/2021 5:33 PM EDT [facility] Comment: > 60 Optimal 40 - 60 Acceptable < 40 Low LDL Calculated 150(H) <100 mg/dL 07/22/2021 5:33 PM EDT [facility] Non-HDL-C Calculated 195(H) <=129 mg/dL 07/22/2021 5:33 PM EDT [facility] Comment: <130 Desirable 130-159 Above Desirable 160-189 Borderline High 190-219 High >= 220 Very High Fasting Specimen? No None 022 5:33 PM EDT [facility] Blood Venipuncture / Unknown 07/22/2021 2:39 PM EDT 07/22/2021 2:39 PM EDT Deepak Kim MD CHEMISTRY ORDERABLES Final Res ult Performing Organization Address [facility] Co de Phone Number [facility], [address] , [place] [address] [facility] [address] [place] [address] * (ABNORMAL) HEMOGLOBIN A1C (07/22/2021 2:39 PM EDT) Hgb A1C 6.6(H) 4.2 - 5.6 % 07/22/2021 9:02 PM EDT [facility] Est. Avg Glucose 143 mg/dL 07/22/2021 9:02 PM EDT [facility] Blood Venipuncture / Unknown 07/22/2021 2:39 PM EDT 07/22/2021 2:39 PM EDT Narrative [facility] - 07/22/2021 9:02 PM EDT REFERENCE [...] ORDERABLES Final Res ult Performing Organization Address [facility] Co de Phone Number [facility], [address] , [address] [place] [phone] * (ABNORMAL) COMPREHENSIVE METABOLIC PANEL (07/22/2021 2:39 [...] 07/22/2021 5:33 PM EDT [facility] Anion Gap 14 7 - 16 mmol/L 07/22/2021 5:33 PM EDT [facility] Calcium 9.4 8.8 - 10.4 mg/dL 07/22/2021 5:33 PM EDT [facility] Glucose Lvl 82 82 - 100 mg/dL 07/22/2021 5:33 PM EDT [facility] BUN 14 8 - 23 mg/dL 07/22/2021 5:33 PM EDT [facility] Creatinine 1.37(H) 0.67 - 1.30 mg/dL 07/22/2021 5:33 PM EDT [facility] Albumin 4.5 3.2 - 4.6 gm/dL 07/22/2021 5:33 PM EDT [facility] Total Protein 7.6 6.4 - 8.3 gm/dL 07/22/2021 5:33 PM EDT [facility] Bili Total 0.5 0.1 - 1.4 mg/dL 07/22/2021 5:33 PM EDT [facility] ALT 34 <=41 U/L 07/22/2021 5:33 PM EDT [facility] AST 22 <=40 U/L 07/22/2021 5:33 PM EDT [facility] Alk Phos 69 40 - 129 U/L 07/22/2021 5:33 PM EDT [facility] eGFR (CKD-EPIcr 2020) 58(L) >=60 mL/min/1.7 3 m2 07/22/2021 5:33 PM EDT [facility] Comment:Estimated GFR was ca lculated using the CKD-EPIcr (2020) equation refit without race. The equation is recommended by the National Kidney Foundation - [place] Society of Nephrology Task Force. Blood Venipuncture / Unknown 07/22/2021 2:39 PM EDT 07/22/2021 2:39 PM EDT us Deepak Kim MD CHEMISTRY ORDERABLES Final Res ult [facility] 1 [facility], [place] [address] [facility] 1 [place] [address] * HM DIABETES EYE EXAM (01/02/2021) Left Diabetic Retinopathy Not Present Present/Not Present SEP OFFICE Right Diabetic Retinopathy Not Present Present/Not Present SEP OFFICE Impressions SEP OFFICE - 01/02/2021 See scanned report us Historical Provider HEALTH MAINTENANCE Final Res ult Performing Organization Address [facility] Co de Phone Number SEP OFFICE * HEPATITIS C ANTIBODY - SCREENING (09/13/2016 8:55 AM EDT) Hep C Ab Negative Negative [facility] Blood specimen (specimen) 09/13/2016 8:55 AM EDT 09/13/2016 10:50 AM EDT Param Mcmillan MD HEMATOLOGY ORDERABLES Fin al Result Performing Organization Address [facility] Co de Phone Number [facility] 1 [place] [address] from Last 3 Months or Most Recently Relevant to Health Maintenance [place] [id number] MDR [place] [id number] MDR [facility] [id number] [facility] Care Teams Financial Developer Relationship Specialty [place] [address] [place] [address] Dermatology 06/02/15 [place] [address] [place] [address] Physician Internal Medicine-Gastroenterology 12/23/15
--- OUTSIDE RECORDS SUMMARY | 2025-01-07 16:23 | XMS_ITS | Patient Health Record ---
Author Organization [facility] Address [address] [facility] [address] [place] [address] Care Team Providers Care Kiln Door Builder Name Role Phone Melvin Israel Primary Care [...] Dutasteride 0.5 MG TAKE 1 CAPSULE BY [facility] ONCE DAILY; Duration: 90 Active Amitriptyline HCl [...] Januvia 100 MG TAKE 1 TABLET BY [facility] DAILY (WITH BREAKFAST).; Duration: 90 Active [...] complication (E11.69) Active confirmed Problem Primary insomnia (1731553) Primary insomnia (F51.01) Active confirmed Problem Nicotine dependence (06831078) Personal history of nicotine dependence (Z87.891) Active confirmed Problem Type II diabetes mellitus without complication (439603337) Diabetes mellitus type 2, noninsulin dependent (E11.9) Active confirmed Problem Hyperlipidemia (41785867) Hyperlipemia, idiopathic familial (E78.5) Active confirmed Problem Obesity (059349279) Obesity, unspecified (E66.9) Active confirmed Problem History of malignant melanoma of the skin (450485340289) History of melanoma (Z85.820) Active confirmed Problem Primary hypertension (86701207) Primary hypertension (I10) Active confirmed Problem Sleep apnea (69139301) Sleep apnea in adult (G47.30) Active confirmed Encounters Encounter Location Date Provider Diagnosis [facility] [address] [place] [address] 06/16/2024 Provider Migration Primary insomnia F51.01 Assessments [...] End Date [employer] MEDICARE DUAL [address] [address] [place] [address] [id number] Thaddeus Leon Self - patient is the insured [place] [place] [address] [address] [place] [address] [id number] CarolynThaddeus Self - patient is the insured Medical (General) History Medical History History ICD Code hypercholestrolemia type II diabetes Esophageal reflux Negative low dose CT scan 06/03 Surgical History Surgery Date(Month/Year) right rotator cuff tear repair spinal tap 3-4 years ago
--- OUTSIDE RECORDS SUMMARY | 2025-01-07 16:23 | XMS_ITS | Clinical Summary ---
Author Organization [facility] Address [address] [place] [address] Care Team Providers Care Filtrose Crusher Name Role Phone Unavailable Primary Care Provider [...] (2 of 2 - PCV) 09/22/2019 09/21/2018 [id number] Vaccine (1 - 20 24-25 season) 2024 [...]
== END 2025-01-07 23:59 | disposition home or self-care (01) ==
LOC: LAB 16:20
PROVIDERS: PCP Family Medicine; Visit Provider Family Medicine
DX: L29.0 Pruritus ani (principal)
CPT/HCPCS: 87045

== ENCOUNTER 2025-01-16 11:48 | Outpatient (CLI) | payer MEDICARE, MEDICAID, SELFPAY ==
--- OUTSIDE RECORDS SUMMARY | 2024-06-16 16:30 | XMS_ITS ---
Author Organization Merged with [facility] Address [address] [place] [id number] Care Team Providers [place] [facility] Name Role Phone Melvin Israel Primary Care Provider Melvin Israel Unavailable Unavailable Migration, Provider Unavailable Unavailable Allergies Allergen (clinical drug ingredient) Drug/Non Drug Allergy documented on EMR Reaction Allergy Type Onset Date Status metformin metFORMIN rash Drug Allergy Active REASON FOR VISIT [facility] To [facility] Conversion Encounter Medications Medication SIG (Take, Route, Frequency, Duration) Notes Start Date End Date Status Pantoprazole Sodium 40 MG 1 tab(s) orall y once a day; Duration: 30 days Active Etodolac 400 MG 1 tab(s) orally 2 ti mes a day; Duration: 90 days Active Clotrimazole-Betamethasone 1-0.05 % 1 case applied topically 2 times a day; Duration: 14 days 2022 Active Loratadine 10 MG 1 tab(s) orally once a day; Duration: 90 days Active Januvia 100 MG TAKE 1 TABLET BY MITA TH DAILY (WITH BREAKFAST).; Duration: 90 Active buPROPion HCl ER (XL) 150 MG 1 tab(s) or ally every 24 hours; Duration: 90 day(s) 04/26/2022 Active Amitriptyline HCl 50 MG 1 tab(s) orally once a day (at bedtime); Duration: 30 days 10/19/2022 Active Ezetimibe 10 MG 1 tab(s) orally once a day; Duration: 90 days Active Dutasteride 0.5 MG 1 cap(s) orally once a day; Duration: 90 days Active Losartan Potassium 25 MG 1 tab(s) orally once a day; Duration: 90 days Active Encounters Encounter Location Date Provider Diagnosis [facility] [address] [place] [id number] 06/16/2024 Provider Migration Primary insomnia F51.01 Assessments Encounter Date Diagnosis (ICD Code) Assessment Notes Treatment Notes Treatment Clinical Notes Section Notes 06/16/2024 Primary insomnia (ICD-10 - F51.01) Plan Of Treatment Medication Medication Name Sig Start Date Stop Date Notes Pantoprazole Sodium 40 MG 1 tab(s) orall y once a day; Duration: 30 days Etodolac 400 MG 1 tab(s) orally 2 ti mes a day; Duration: 90 days Loratadine 10 MG 1 tab(s) orally once a day; Duration: 90 days Januvia 100 MG TAKE 1 TABLET BY MITA TH DAILY (WITH BREAKFAST).; Duration: 90 Amitriptyline HCl 50 MG 1 tab(s) orally once a day (at bedtime); Duration: 30 days 10/19/2022 Ezetimibe 10 MG 1 tab(s) orally once a day; Duration: 90 days Dutasteride 0.5 MG 1 cap(s) orally once a day; Duration: 90 days Losartan Potassium 25 MG 1 tab(s) orally once a day; Duration: 90 days Progress Notes * Thaddeus JULIOOB:07/1955 (69 yo M)Acc No.[id number]:06/16/2024 Patient: Vicky Thaddeus DICK Provider: Renan saul Migration :1955 A ge:68 Y S ex:Male Date:06/16/2024 Address:[address] [place] [id number] Pcp:Melvin Israel Subjective: * Chief Complaints: * 1 . Multum To Medispan Conversion Encounter. * Medical History: * Medications: T aking buPROPion HCl ER (XL) 150 MG Tablet Extended Release 24 Hour 1 tab(s) orally every 24 hours , Taking Clotrimazole-Betamethasone 1-0.05 % Cream 1 case applied topically 2 times a day * Allergies: m etFORMIN: rash - Allergy. Objective: * Vitals: Assessment: * Assessment: 1. P rimary insomnia - F51.01 Plan: * Treatment: 2. O thers Start Januvia Tablet, 100 MG, TAKE 1 TABLET BY MOUTH DAILY (WITH BREAKFAST)., 90, 90 Tablet, Refills 1; S tart Losartan Potassium Tablet, 25 MG, 1 tab(s), orally, once a day, 90 days, 90 Tablet, Refills 0; S tart Ezetimibe Tablet, 10 MG, 1 tab(s), orally, once a day, 90 days, 90 Tablet, Refills 3; S tart Dutasteride Capsule, 0.5 MG, 1 cap(s), orally, once a day, 90 days, 90 Capsule, Refills 3; S tart Loratadine Tablet, 10 MG, 1 tab(s), orally, once a day, 90 days, 90 Tablet, Refills 3; S tart Pantoprazole Sodium Tablet Delayed Release, 40 MG, 1 tab(s), orally, once a day, 30 days, 30 Tablet, Refills 0; S tart Etodolac Tablet, 400 MG, 1 tab(s), orally, 2 times a day, 90 days, 180 Tablet, Refills 1. * * Electronic signature of Prov ider Migration on 01/16/2025 at 12:14 PM EST Sign off status: Pending * Provider: Renan saul Migration Date: 0 06/16/2024 Generated for Gio ojeda/Memo/Priscilla on: 1 03/18/2024 12:14 PM EST
--- NOTE | 2025-01-16 | CA_ITS ---
APPROVED REPORT Exam: Exercise Treadmill Technologist: Cathryn Morrison Stress Nurse: Ghislaine PATEL, RN Ht: 5 ft 8 in Wt: 232 lbs BSA: 2.18 m2 HR: 53 bpm BP: 166/91 mmHg Indications: Dyspnea on exertion. Stress Test Details Test: Exercise stress testing was performed using a Sebas protocol. HR Resting HR: 53 bpm Max Heart Rate (APMHR): 153.453028 bpm Max HR Achieved: 138 bpm Target HR (85% APMHR): 130.786081 bpm % of APMHR: 90.20 Recovery HR: 93 bpm BP Resting BP: 166.0/91.0 mmHg Max BP: 171.0/67.0 mmHg Recovery BP: 149.0/90.0 mmHg ECG Stress ECG Conclusion Requested to stop test due to dyspnea/chest pain - 2/10 on pain scale. Test stopped at 2 minutes 2 seconds. Symptoms: Dyspnea, chest pain Arrhythmias/Ectopy: PAC/ PVC ST-T Changes: Less than 0.[address] segment changes. Electronically signed by : Brenna Neal MD 01/21/2025 12:39:22
--- NOTE | 2025-01-16 12:00 | NM_ITS ---
APPROVED REPORT Exam: Nuclear Stress Test Indication: cp..soa..fatigue Patient Location: Outpatient Stress Tech: Cathryn Morrison NM Tech:Erna Allen, ARRT, RT (R)(N) Ht: 5 ft 10 in Wt: 232 lbs HR: 51 bpm BP: 166/91 mmHg BSA: 2.22 m2 TID: 1.13 BMI: 33.2 History: cp..soa..fatigue Procedure: Patient exercised on Sebas protocol 2:02 minutes and sec, resting heart rate 51 bpm, resting blood pressure 166/91 mmHg, with exercise maximum heart rate achived was 138 bpm which is 90 % of the maximum predicted heart rate and blood pressure was 171/67 mmHg. Test was stopped due to fatigue. Patient has reduced exercise capacity, achieved 4.6 METs of workload on treadmill, the blood pressure response to exercise was normal. Cardiac Stress and Resting SPECT Images: Cardiac Stress and Resting SPECT images were obtained using technetium 99m Myoview 32.6 mCi stress and 10.18 mCi at rest. Resting and stress imaging in supine positions demonstrate a small sized, tapered, fixed perfusion defect in the basal inferior LV wall. This is no longer visualized with prone stress imaging. Findings are suggestive of diaphragmatic attenuation. Gated imaging demonstrates normal global LV systolic function. LVEF is calculated at 55%. Conclusion: Diaphragmatic attenuation is present. No evidence of fixed or reversible perfusion defects. Gated imaging demonstrates normal global LV systolic function. LVEF is calculated at 55%. Electronically signed by : Brenna Neal MD 01/21/2025 12:27:25
--- OUTSIDE RECORDS SUMMARY | 2025-01-16 12:15 | XMS_ITS | Patient Health Record ---
Author Organization [facility] Address [address] [facility] [address] [place] [address] Care Team Providers Care Alodize Machine Operator Name Role Phone Melvin Israel Primary Care Provider [phone] Melvin Israel Unavailable Unavailable Migration, Provider Unavailable [...] Dutasteride 0.5 MG TAKE 1 CAPSULE [address] [facility] ONCE DAILY; Duration: 90 Active Amitriptyline HCl [...] Januvia 100 MG TAKE 1 TABLET BY [facility] DAILY (WITH BREAKFAST).; Duration: 90 Active [...] complication (E11.69) Active confirmed Problem Primary insomnia (6398098) Primary insomnia (F51.01) Active confirmed Problem Nicotine dependence (79276323) Personal history of nicotine dependence (Z87.891) Active confirmed Problem Type II diabetes mellitus without complication (627902152) Diabetes mellitus type 2, noninsulin dependent (E11.9) Active confirmed Problem Hyperlipidemia (86527584) Hyperlipemia, idiopathic familial (E78.5) Active confirmed Problem Obesity (024684033) Obesity, unspecified (E66.9) Active confirmed Problem History of malignant melanoma of the skin (089387278525) History of melanoma (Z85.820) Active confirmed Problem Primary hypertension (10170488) Primary hypertension (I10) Active confirmed Problem Sleep apnea (31112663) Sleep apnea in adult (G47.30) Active confirmed Encounters Encounter Location Date Provider Diagnosis [facility] [address] [place] [address] 06/16/2024 Provider Migration Primary insomnia F51.01 Assessments [...] End Date [employer] MEDICARE DUAL [address] [address] [place] [address] [id number] Thaddeus Leon Self - patient is the insured [place] [address] [address] [place] [address] [id number] CarolynThaddeus Self - patient is the insured Medical (General) History Medical History History ICD Code hypercholestrolemia type II diabetes Esophageal reflux Negative low dose CT scan 06/03 Surgical History Surgery Date(Month/Year) right rotator cuff tear repair spinal tap 3-4 years ago
--- OUTSIDE RECORDS SUMMARY | 2025-01-16 12:15 | XMS_ITS | Encounter Summary ---
Author Organization [place] [address] Care Team Providers Care Medical Data Analyst Name Role Phone Param Mcmillan MD Primary Care Provider [phone] Kahlil Stovall MD Unavailable [phone] Dony Willett MD Unavailable Encounter Details Date Type Department Care Team (Late st Contact Info) Description 01/26/2016 Orders Only SEP Gastro [facility] [address] [facility] [address] [place] [address] Dony Willett MD [address] [place] [address] Social History Tobacco Use Types [...] PM EST) 01/26/2016 1:00 PM EST Impressions [facility] - 01/26/2016 1:23 PM EST Normal esophagus. Erythema in the duodenal bulb compatible with duodenitis. Hiatal Hernia. Plan: Follow-up as needed This section is an excerpt of the full report. us Dony Willett MD GI PROCEDURE ORDERABLES Fin al Result [facility] 1 [place] [address] documented in this encounter Visit Diagnoses Not on filedocumented in this encounter Care Teams Medical Data Analyst Relationship Specialty Start Date End Date Param Mcmillan MD [address] [facility] [address] [place] [id number] PCP - General Family Medicine 04/23/15 07/06/22 [place] [address] [address] [facility] [place] [address] Dermatology 06/02/15 [place] [address] [address] [facility] [place] [address] Physician Internal Medicine-Gastroenterology 12/23/15 documented as of this encounter
--- OUTSIDE RECORDS SUMMARY | 2025-01-16 12:15 | XMS_ITS | Clinical Summary ---
Author Organization [facility] Address [address] [place] [address] Care Team Providers Care Corn Husker Name Role Phone Unavailable Primary Care Provider [...] (2 of 2 - PCV) 09/22/2019 09/21/2018 [id number] Vaccine (1 - 20 24-25 season) 2024 [...]
--- OUTSIDE RECORDS SUMMARY | 2025-01-16 12:15 | XMS_ITS | Clinical Summary ---
Author Organization [facility] Address [address] [place] [address] Phone Care Team Providers Care Hvac Sheet Metal Installer Name Role Phone Kahlil Stovall MD Unavailable Dony Willett MD Unavailable [phone] Allergies Active Allergy Reactions Criticality Noted Date Comments Atorvastatin Other (See Comments) 10/21/2016 Dizziness Metformin Rash 11/17/2021 rash, significant with blistering Simvastatin 10/19/2016 Lightheadedness Medications aspirin 81 mg tabletIndications: myocardial infarction prevention Take 81 mg by mouth daily. Indications: treatment to prevent a heart attack 04/17/19 12 Active fluticasone propionate (FLONASE) 50 mcg/actuation Nasl Neffs, Suspension 1 Neffs by Nasal route daily. 1 Bottle 5 [...] mg/L 11/17/2021 1:38 PM EDT [facility] [employer] Urine Creatinine 387.0 mg/dL 11/18/19 1:38 PM EDT [facility] Ur Albumin/Creat Ratio 11/17/2021 1:38 PM EDT [facility] Comment: Because the albumin level is below [...] MD URINE ORDERABLES Final Result [facility] [address] [facility] , [place] [address] * (ABNORMAL) LIPID PANEL REFLEX (07/22/2021 2:39 PM EDT) Cholesterol 224(H) <200 mg/dL 07/22/2021 5:33 PM EDT [facility] Comment: < 200 Desirable 200 - 239 Borderline High >= 240 High Triglyceride 243(H) <150 mg/dL 07/22/2021 5:33 PM EDT [facility] Comment: < 150 Normal 150 - 199 Borderline High 200 - 499 High >= 500 Very High HDL 29(L) >=40 mg/dL 07/22/2021 5:33 PM EDT [facility] Comment: > 60 Optimal 40 - 60 Acceptable < 40 Low LDL Calculated 150(H) <100 mg/dL 07/22/2021 5:33 PM EDT [facility] Non-HDL-C Calculated 195(H) <=129 mg/dL 07/22/2021 5:33 PM EDT [facility] Comment: <130 Desirable 130-159 Above Desirable 160-189 Borderline High 190-219 High >= 220 Very High Fasting Specimen? No None 022 5:33 PM EDT [facility] Blood Venipuncture / Unknown 07/22/2021 2:39 PM EDT 07/22/2021 2:39 PM EDT Deepak Kim MD CHEMISTRY ORDERABLES Final Res ult Performing Organization Address [facility] Co de Phone Number [facility], [address] , [place] [address] [facility] [address] [place] [id number] * (ABNORMAL) HEMOGLOBIN A1C (07/22/2021 2:39 PM EDT) Hgb A1C 6.6(H) 4.2 - 5.6 % 07/22/2021 9:02 PM EDT [facility] Est. Avg Glucose 143 mg/dL 07/22/2021 9:02 PM EDT [facility] Blood Venipuncture / Unknown 07/22/2021 2:39 PM EDT 07/22/2021 2:39 PM EDT Narrative [facility] - 07/22/2021 9:02 PM EDT REFERENCE RANGE: Normal: 4.0-5.6% Pre-diabetes: 5.7-6.4% Provisional diagnosis of diabetes: >6.4% Hgb F>10% and anything which shortens red cell survival, such as hemolytic anemia, or unstable hemoglobin variants such as HbSS, HbSC, or HbCC, will lower the HbA1c value associated with a given level of glycemic control. Deepak Kim MD CHEMISTRY ORDERABLES Final Res ult Performing Organization Address [facility] Co de Phone Number [facility], [address] , [address] [place] [phone] * (ABNORMAL) COMPREHENSIVE METABOLIC PANEL (07/22/2021 2:39 [...] 07/22/2021 5:33 PM EDT [facility] Anion Gap 14 7 - 16 mmol/L 07/22/2021 5:33 PM EDT [facility] Calcium 9.4 8.8 - 10.4 mg/dL 07/22/2021 5:33 PM EDT [facility] Glucose Lvl 82 82 - 100 mg/dL 07/22/2021 5:33 PM EDT [facility] BUN 14 8 - 23 mg/dL 07/22/2021 5:33 PM EDT [facility] Creatinine 1.37(H) 0.67 - 1.30 mg/dL 07/22/2021 5:33 PM EDT [facility] Albumin 4.5 3.2 - 4.6 gm/dL 07/22/2021 5:33 PM EDT [facility] Total Protein 7.6 6.4 - 8.3 gm/dL 07/22/2021 5:33 PM EDT [facility] Bili Total 0.5 0.1 - 1.4 mg/dL 07/22/2021 5:33 PM EDT [facility] ALT 34 <=41 U/L 07/22/2021 5:33 PM EDT [facility] AST 22 <=40 U/L 07/22/2021 5:33 PM EDT [facility] Alk Phos 69 40 - 129 U/L 07/22/2021 5:33 PM EDT [facility] eGFR (CKD-EPIcr 2020) 58(L) >=60 mL/min/1.7 3 m2 07/22/2021 5:33 PM EDT [facility] Comment:Estimated GFR was ca lculated using the CKD-EPIcr (2020) equation refit without race. The equation is recommended by the [employer] - [place] [employer] Neph[employer] Task Force. Blood Venipuncture / Unknown 07/22/2021 2:39 PM EDT 07/22/2021 2:39 PM EDT us Deepak Kim MD CHEMISTRY ORDERABLES Final Res ult [facility] [address] [facility], [place] [address] [facility] [address] [place] [address] * HM DIABETES EYE EXAM (01/02/2021) Left Diabetic Retinopathy Not Present Present/Not Present SEP [facility]ICE Right Diabetic Retinopathy Not Present Present/Not Present SEP OFFICE Impressions SEP OFFICE - 01/02/2021 See scanned report us Historical Provider HEALTH MAINTENANCE Final Res ult Performing Organization Address City/[facility] Co de Phone Number SEP OFFICE * HEPATITIS C ANTIBODY - SCREENING (09/13/2016 8:55 AM EDT) Hep C Ab Negative Negative [facility] Blood specimen (specimen) 09/13/2016 8:55 AM EDT 09/13/2016 10:50 AM EDT Param Mcmillan MD HEMATOLOGY ORDERABLES Fin al Result Performing Organization Address [facility] Co de Phone Number [facility] [address] [place] [address] from Last 3 Months or Most Recently Relevant to Health Maintenance Insurance [place] [id number] [employer] [facility] [place] [id number] [facility] [id number] [facility] Care Teams Hvac Sheet Metal Installer Relationship Specialty [place] [address] [place] [address] Dermatology 06/02/15 [place] [address] [place] [address] Physician Internal Medicine-Gastroenterology 12/23/15
[2025-01-16] MEDS: SODIUM CHLORIDE 0.9% 10ML SYR (RAD ONLY) 10 ML IV ×2 (13:35)
[2025-01-16] MEDS: ISOTOPE MYOVIEW (PER STUDY) 1 DOSE IV (13:35)
[2025-01-16 14:06] VITALS: BP 166/91; BP 171/67; PULSE 53; RESP 16
== END 2025-01-16 23:59 | disposition home or self-care (01) ==
LOC: RAD 11:48
PROVIDERS: PCP Family Medicine; Visit Provider Family Medicine
DX: I49.1 Atrial premature depolarization (principal); I49.3 Ventricular premature depolarization
CPT/HCPCS: 78452; 93017; 93018; A9502